=== PATIENT | female | born 1995 | race Caucasian/White ===

== ENCOUNTER 2019-11-12 05:53 | Day surgery (SDC) | payer OTHER, MEDICAID, SELFPAY ==
[2019-11-10 19:23] LABS: Probe Check PASS; Specimen Processing Control PASS
[2019-11-12 06:25] VITALS: BP 119/81; PULSE 69; RESP 16; TEMP 36.7; O2SAT 100; BMI 22.5
[2019-11-12] MEDS: Doxycycline 100 MG CAPSULE 200 MG PO (06:30)
[2019-11-12] MEDS: Lactated Ringers 1,000 ML 100 ML IV (06:31)
[2019-11-12 06:44] LABS: Hematocrit 35.6 % (37-47); Hemoglobin 11.5 g/dL (12.0-15.0); Mean Corp Hgb Conc 32.3 g/dL (32-36); Mean Corpuscular Hgb 30.3 pg (27.0-32.0); Mean Corpuscular Volume 93.7 fL (81-99); Mean Platelet Vol. 8.8 fl (6.2-12.0); Platelet Count 350 K/mm3 (150-450); RBC Distribution Width CV 13.3 % (11.6-14.6); RBC Distribution Width SD 45.5 fl (35.1-43.9); White Blood Count 5.4 K/mm3 (4.4-11.0)
--- NOTE | 2019-11-12 06:50 | HP.PCM_ITS ---
- Problem List (1) Missed Status: Acute History and Physical Date of Admission: 11/12/19 Leonid Velazquez is a 23 year old female who presents for problem visit?for follow up miscarriage and pre-op H&P.? ? HPI:?No fevers, chills, pain.?+Brown spotting.?S/p 2 doses of cytotec for MAB.? ? PAST MEDICAL HISTORY PAST MEDICAL HISTORY Diagnosis Date ? Abnormal Pap smear of cervix 2016 ? Dr Handy ? bleeding from breast ? ? Cystic fibrosis (HCC) ? ? Mental disorder ? PAST SURGICAL HISTORY PAST SURGICAL HISTORY Procedure Laterality Date ? EMBOLIZATION - TEST OCCLUSION ? ? ? x3 ? PAST SURGICAL HISTORY OF ? ? ? feeding tube when patient was a baby ? PAST SURGICAL HISTORY OF ? ? ? several sinus surgeries ? TOOTH EXTRACTION ? ? ? VAGINOSCOPY ? ? FAMILY HISTORY FAMILY HISTORY Problem Relation Age of Onset ? Psychiatry Mother ? ? Hypertension Mother ? ? No Known Problems Father ? ? No Known Problems Sister ? ? No Known Problems Brother ? ? Psychiatry Maternal Grandmother ? ? No Known Problems Paternal Grandmother ? ? No Known Problems Paternal Grandfather ? ? No Known Problems Brother ? ? No Known Problems Brother ? ? No Known Problems Brother ? ? other (CF 3rd cousinb) Paternal cousin ? SOCIAL HISTORY Social History ? Tobacco Use ? Smoking status: Never Smoker ? Smokeless tobacco: Never Used Substance Use Topics ? Alcohol use: Not Currently ? ? Comment: occasionally ? Drug use: No CURRENT MEDICATIONS Current Outpatient Medications Medication Sig ? sodium chloride (NEBUSAL) 3 % nebulizer solution Use 3 mL via nebulizer. ? Leffaigc-Kp-Cvu-Fe-FA ( VITAMIN) tab Take 1 tablet by mouth. ? iftlwvgvzpb-gbpcfptooj-ylxofmp (TRIKAFTA) 100-50-75 mg(d) /150 mg (n) TbSQ tabs Take 1 tablet by mouth. Take 2 combination tablets in the morning and take 1 Ivacaftor tablet in the evening. DO NOT crush, chew, or open. ? MULTI-VITAMIN ORAL Take by mouth. Vitamin A,B,D,E,K ? ? cholecalciferol, vitamin D3, (CHOLECALCIFEROL, VITD3,, BULK,) 100,000 unit/gram powd Take by mouth. ? ALBUTEROL INHALATION Inhale as instructed. ? omeprazole (PRILOSEC) 10 mg capsule Take 10 mg by mouth once daily. ? MEDICATION, NON-DATABASE Hypersol 3% saline ? tkdxkx-balasaua-vhlejjq (CREON) 24,000-76,000 -120,000 unit cpDR Take 3 capsules by mouth three times daily with meals. ? dornase myesha (PULMOZYME) 1 mg/mL nebulizer solution Inhale 2.5 mL as instructed twice daily. ? fluconazole (DIFLUCAN) 150 mg tablet Take 1 tablet by mouth one time only for 1 dose. ? No current facility-administered medications for this visit.? Allergies As of Date: 11/09/2019 Allergen ?Noted ?Reaction VANCOMYCIN ANALOGUES ?06/01/2013 ?Unknown, Itching, and Swelling ? Fully Assessed ?11/09/2019 ? REVIEW OF SYSTEMS Expanded ROS:?PAIN ASSESSMENT:?Negative for pain, history of chronic pain, or current treatment for a chronic pain condition. 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 EXAM:?BP 120/70 Wt 129 lb (58.5kg) LMP 08/01/2019? ? ? GENERAL:?pleasant,??female in no apparent distress HEENT:?Normocephalic, atraumatic, mucus membranes moist and no lesions NECK:?Supple, full range of motion, no adenopathy and thyroid normal DERMATOLOGY:?Normal, without lesions, non-icteric and non-hirsute CHEST:?Regular rate and rhythm ABDOMEN:?soft, non-tender and no masses NEURO:?exam grossly non-focal EXTREMITIES:?normal ? ASSESSMENT AND PLAN:?? Encounter Diagnosis ? ? ICD-10-CM ? 1. Pre-op exam Z01.818 ? 2. Missed O02.1 ? 3. Vaginal discharge N89.8 fluconazole (DIFLUCAN) 150 mg tablet TVUS showing endometrium that is complex appearing and measuring 2.6 cm with increased blood flow. Discussed retained POC's with patient. Counseling provided today and questions regarding miscarriage answered. Recommended IPAS procedure. Discussed r/b of IPAS and suction D&C. Pt desires to proceed with suction D&C. Reviewed risks including but not limited to bleeding, infection, uterine perforation, Asherman's with suction D&C. Patient desires to proceed with suction D&C and consent signed. Will schedule. ? Greta Hyde,?DO
--- NOTE | 2019-11-12 07:06 | PCM.DC.D&C ---
Discharge Diet: No Restrictions Discharge Activity: May Not Drive - For 24 hours after procedure, May Shower, May Take a Tub Bath - After 1 week or when your bleeding has stopped Return to work on:: 11/16/19 May resume sexual activity in: 1-2 weeks - Or once your bleeding stops Weight Bearing Status: Weight bearing as tolerated Lifting Restrictions: No restrictions Additional Activity Instructions:: No tampons, intercourse, hot tubs, pools or tub baths for 1 week or until your vaginal bleeding stops. Call your doctor if you observe: Fever of 101 or Higher, Inability to urinate, Inability to have a bowel movement, Using more than one pad per hour, Shortness of breath, Dizziness, Fainting spells, Chest pain, Increased palpitations (irregular heartbeat), Calf discomfort, Uncontrolled pain Allergies/Adverse Reactions: Allergies vancomycin Allergy (Verified 11/10/19 09:39) Itching Medications to take at Discharge Albuterol Inhaler [Ventolin Hfa (SP)] 1 puff INHALATION BID 07/31/16 Lipase/Protease/Amylase [Creon Dr 24,000 Units Capsule] 3 each PO TID 07/31/16 Sodium Chloride For Inhalation [Sodium Chloride] 1 dose INHALATION BID 07/31/16 Fluconazole [Diflucan] 600 mg PO DAILY 03/01/17 Omeprazole 20 mg PO QODAY 03/01/17 Elexacaftor/Tezacaftor/Ivacaft [Trikafta 100/50/75 mg-150 mg] 1 ea PO BID 11/10/19 Multivitamin with Minerals [Multiple Vitamin] 1 ea PO DAILY 11/10/19 Pnv No.95/Ferrous Fum/Folic AC [ Caplet] 1 ea PO DAILY 11/10/19 Orders to be completed after discharge: Type & Screen - PAT ONLY Time Frame: 11/12/19, Facility: [facility], Location: Laboratory Primary Care Physician: Care Physician,No Primary [Primary Care Provider] - Test Results: Test results from this visit will be discussed in further detail at your follow-up appointment, if applicable. Please Follow Up With: Greta Hyde DO When: 1 weeks - can be virtual if you are feeling well
--- NOTE | 2019-11-12 07:09 | PCM.OPRPT ---
Problem List (1) Missed Status: Acute Report of Operation Date of Procedure: 11/12/19 Pre-Operative Diagnosis: MAB at 8 weeks, s/p 2 doses of Cytotec with retained products of conception Post-Operative Diagnosis: As above Surgery/Procedure Performed:: Suction D&C Description of Surgical Findings:: Uterus enlarged and palpated to be an 8 week size uterus. Products of conception noted Type of Anesthesia:: MAC Special Medications: None Specimen's removed: Retained products of conception Drains: None Estimated Blood Loss (mL): 25 Fluids Replaced: 700 Description of Procedure: The patient was taken to the operating room where MAC anesthesia was found to be adequate. She was prepped and draped in dorsal lithotomy position in yellowfin stirrups. A weighted speculum was placed in the vagina to expose the cervix. The anterior lip of cervix was grasped with a single-tooth tenaculum. The cervix was serially dilated to accommodate a size 7 suction curettage cannula. A suction D&C was performed with retained products of conception noted. Several passes were made with the suction curettage, followed by a gentle sharp curettage for 4 passes. Several additional passes were made with the suction curettage until no further tissue was noted. All instruments were removed from the vagina. Bleeding was hemostatic. Sponge and instrument counts were correct. The patient was taken recovery in stable condition. Grafts/Implants Used: None - Complications None - Admit VTE Documentation VTE Present on Admission: No VTE Mechan Device Prophylaxis: SCD's
--- NOTE | 2019-11-12 07:30 | POC_PTH ---
PATIENT: AYDEE MARTINEZ LOC: [facility] [place] U#:[id number] AGE/SX: 23/F ROOM: RE11/12/[address]: Dr. Greta Hyde DO : 1995 BED: DIS: 11/12/2019 SPEC #: [id number] RECD: 11/12/19 08:24 STATUS: KIRA RANDAL #: [id number] TORSTEN: 11/12/19 07:[address]: Greta Hyde DEPT: SURGICAL PATHOLOGY RECD BY: Boni Murphy ENTERED: 11/12/19 09:20 SP TYPE: PROD CONC OTHR DR: No Primary Care Phys Tissues: Product of conception, NOS Procedures: Surgery Specimen Level IV HEADER OPERATION: Suction D & C PRE-OP DIAGNOSIS: Missed TISSUE SUBMITTED: Products of conception MICROSCOPIC DIAGNOSIS Endometrium, curettage: Chorionic villi, decidualized stroma and trophoblastic cells consistent with products of conception. AM:kurt 7/6/20 MICROSCOPIC DESCRIPTION Slides are reviewed. GROSS DESCRIPTION Received in fixative is one container labeled with the patient's name and designated products of conception. The specimen consists of multiple fragments of pink hemorrhagic soft tissue that in aggregate measure 6 x 5 x 1 cm. No tissue is identified. Pewter Fabricator tissue is submitted in two cassettes. / SJ:kurt 11/12/19 TC:5 CPT: 26019
[2019-11-12 08:01] VITALS: BP 113/75; BP 119/81; PULSE 111; RESP 16; TEMP 37.2; O2SAT 100
[2019-11-12 08:05] VITALS: BP 119/81; BP 121/80; PULSE 115; RESP 18; O2SAT 100
[2019-11-12 08:10] VITALS: BP 119/81; BP 125/83; PULSE 94; RESP 16; O2SAT 100
[2019-11-12 08:18] VITALS: BP 119/81; BP 126/82; PULSE 82; RESP 18; TEMP 37.1; O2SAT 99
[2019-11-12 08:57] VITALS: BP 119/81
== END 2019-11-12 08:58 | disposition home or self-care (01) ==
LOC: SDC 05:58 → AC 06:00
PROVIDERS: Anesthesiology; Referring Provider Obstetrics & Gynecology; Visit Provider Obstetrics & Gynecology
PROC: (CPT 59820; principal; 2019-11-12 07:15)
DX: O02.1 Missed abortion (principal); Z11.59 Encounter for screening for other viral diseases; E84.9 Cystic fibrosis, unspecified; N89.8 Other specified noninflammatory disorders of vagina; K21.9 Gastro-esophageal reflux disease without esophagitis; Z79.899 Other long term (current) drug therapy
CPT/HCPCS: 01965; 59820; 85027; 86850; 86900; 86901; 87635; 88305; G2023; J7050; J7120; J2405; U0003

== ENCOUNTER → 2020-01-20 12:22 | Outpatient (CLI) | payer OTHER, MEDICAID, SELFPAY ==
[2020-01-20 13:46] LABS: hCG Titer Quant., Serum 15742 mIU/mL (1-3)
== END ==
PROVIDERS: Referring Provider Obstetrics & Gynecology; Visit Provider Obstetrics & Gynecology
DX: O09.291 Supervision of pregnancy with other poor reproductive or obstetric history, first trimester (principal); Z3A.00 Weeks of gestation of pregnancy not specified
CPT/HCPCS: 36415; 84702

== ENCOUNTER 2020-02-19 18:13 | Emergency (ER) | payer OTHER, MEDICAID, SELFPAY ==
[2020-02-19 18:13] VITALS: BP 143/89; PULSE 92; RESP 16; TEMP 37.2; O2SAT 100; BMI 23.0
--- NOTE | 2020-02-19 18:54 | US_ITS ---
STUDY: FIRST TRIMESTER OBSTETRICAL ULTRASOUND REASON FOR EXAM: Female, 24 years old BLEEDING WITH CRAMPS LMP: 12/07/2019 TECHNIQUE: Transvaginal TECHNICAL QUALITY: Adequate. PRIOR ULTRASOUND: None. FINDINGS: There is visualization of a single gestational sac in a normal intrauterine position. The mean sac diameter (MSD) measures 4.2 cm, indicating an estimated gestational age (EGA) of 9 weeks, 4 days. The gestational sac shape is within normal limits. There is a visualized yolk sac. The yolk sac measures 6.3 mm. The placenta is non-visualized. There is visualization of a live embryo. The crown-rump length (CRL) measures 3.7 cm, indicating an estimated gestational age (EGA) of 10 weeks, 2 days. There is demonstrated cardiac activity with a heart rate of 183 bpm. There is a moderate to large subchorionic hemorrhage. The estimated gestation age (EGA) by LMP is 10 weeks, 4 days. The estimated date of delivery (OFELIA) by LMP is 09/12/2020. The estimated gestation age (EGA) by US is 9 weeks, 6 days. The estimated date of delivery (OFELIA) by US is 09/17/2020. The uterus measures 10.6 x 9.3 x 7.0 cm. There is no demonstrated uterine fibroid. The cervix is closed. The right ovary measures 4.0 x 2.8 x 1.8 cm. There is no right ovarian cyst. There is no visualized right adnexal mass or complex lesion. The left ovary measures 3.0 x 1.8 x 2.2 cm. There is no left ovarian cyst. There is no visualized left adnexal mass or complex lesion. There is minimal fluid in the cul de sac. US/Transvaginal w/Preg US IMPRESSION: Single live intrauterine gestation with ultrasound EGA of approximately 10 weeks 2 days. Moderate to large subchorionic hemorrhage, short interval follow-up recommended Electronically Signed: Fitz Lopez MD at 20:48 EDT , Service support ,
[2020-02-19 19:04] LABS: Bacteria 0 SEEN /hpf (None Seen); Mucous, Urine 0 SEEN /hpf (<or=2+); Red Blood Cells-Urine 0 SEEN /hpf (0-5)
[2020-02-19 19:08] LABS: Color, Urine Yellow (Yellow); Glucose, Dipstick Normal (Normal); Ketone-Dipstick Negative (Negative); Leukocyte Esterase-Dipstick Negative /ul (Negative); Nitrite-Dipstick Negative (Negative); Occult Blood-Urine 25 /ul (Negative); Protein-Dipstick Negative (Negative); Specific Gravity, Urine 1.015 (1.002-1.030); Urine Bilirubin Dipstick Negative (Negative); Urine Clarity Clear (Clear); Urine Urobilinogen Normal (Normal)
[2020-02-19 19:12] LABS: Squamous Epithelial Cells - UA 0-5 SEEN /hpf (5-10); White Blood Cells 0-5 SEEN /hpf (0-5)
--- NOTE | 2020-02-19 19:19 | ED.DCSUM_ITS ---
- ER Visit Summary Date of Service: 02/19/20 Chief Complaint: Vaginal bleeding History of Present Illness: The patient is a 24 F who presents with vaginal bleeding that has been intermittent over the last couple weeks. Patient states that she has been having some brown vaginal bleeding. Patient denies passing any tissue or clots. Patient is approximately 10 weeks 4 days . Patient is 2 para 0 with 1 miscarriage. Patient is concerned over possible miscarriage again. Patient denies any vaginal discharge. Patient admits to some abdominal cramping. Patient denies any fevers or chills. Patient admits to nausea but denies any vomiting. Physical Examination: Vital signs are stable. Patient is afebrile. Patient is in no acute distress. Oral mucosa is pink and moist. Neck is supple. Trachea is midline. There is no JVD noted. Heart was regular rate and rhythm. Lungs are clear and equal bilaterally. Abdomen is soft. Bowel sounds are normal. There is no tenderness. There is no rebound or guarding noted. Skin is warm dry. Cranial nerves II through XII are intact. There are no focal motor or sensory deficits noted. Extremities are intact. There is no calf tenderness or edema. Test Results: CBC and urinalysis were obtained and were within normal limits. Quantitative hCG was 7[address]70. Pelvic ultrasound was obtained. There is a single live intrauterine gestation measuring approximately 10 weeks 2 days. There is a moderate to large subchorionic hemorrhage. This was interpreted by the radiologist and reviewed by myself. Emergency Department Course and Treatment: Camet-tm-lnrg ultrasound was obtained and showed movement. I was unable to calculate the heart rate. Patient was feeling better on reevaluation. Patient was instructed to have complete vaginal rest. 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 Patient understood and was agreeable with the plan. All questions were answered. Disposition: Discharge home Impression: Threatened miscarriage This note was generated with [employer]AT[employer]COMation software. It may contain incorrect words, spelling, and punctuation that were not noted in review of the chart prior to signing ED Disposition - Plan for ED Patient: Disposition: Home or Assisted Living Diagnosis: Threatened miscarriage Instructions: ED Possible Miscarriage Threatened Referrals: Greta Hyde DO [STAFF PHYSICIAN] - 2 Days
[2020-02-19 19:39] LABS: Absolute Lymphocyte Count 2.06 X10^3/uL (0.83-4.51); Absolute Neutrophil Count 4.2 X10^3/uL (2.0-7.7); Basophil# 0.03 X10^3/uL; Basophil% 0.4 % (0-1); Eosinophil# 0.12 X10^3/uL; Eosinophils% 1.7 % (0-5); Hemoglobin 12.8 g/dL (12.0-15.0); Lymphocyte # 2.06 X10^3/ul (4.0); Mean Corp Hgb Conc 32.8 g/dL (32-36); Mean Corpuscular Hgb 30.2 pg (27.0-32.0); Monocyte# 0.42 X10^3/uL; Monocyte% 6.1 % (0-10); NRBC Flagged by Analyzer 0 % (0-5); Neutrophil # 4.21 X10^3/uL (2.7-7.7); Neutrophil % 61.5 % (47-70); Platelet Count 336 K/mm3 (150-450); RBC Distribution Width CV 11.8 % (11.6-14.6); RBC Distribution Width SD 39.1 fl (35.1-43.9); Red Blood Count 4.24 M/mm3 (4.2-5.4); White Blood Count 6.9 K/mm3 (4.4-11.0)
--- NOTE | 2020-02-19 19:50 | ED.RN ---
MULTIPLE ATTEMPTS TO GET IV ACCESS AD ALSO BLOOD DRAWS HAVE OCCURRED. PT IS CURRENTLY REFUSING ANY FURTHER ATTEMPTS. PHYSICIAN IS AWARE.
[2020-02-19 21:08] VITALS: BP 137/62; PULSE 59; RESP 16; O2SAT 98
[2020-02-19 21:53] VITALS: BP 111/71; PULSE 75; RESP 18; O2SAT 100
== END 2020-02-19 21:53 | disposition home or self-care (01) ==
PROVIDERS: Emergency Provider Emergency Medicine
DX: O20.0 Threatened abortion (principal); E84.9 Cystic fibrosis, unspecified; Z3A.10 10 weeks gestation of pregnancy
CPT/HCPCS: 76817; 81001; 84702; 85025; 99282; J7030; A4216

== ENCOUNTER 2020-05-01 16:34 | Emergency (ER) | payer OTHER, MEDICAID, SELFPAY ==
[2020-05-01 16:35] VITALS: BP 124/65; PULSE 83; RESP 16; TEMP 36.2; O2SAT 100; BMI 24.6
--- NOTE | 2020-05-01 16:51 | EKG12_ITS ---
Test Reason : SYNCOPE Blood Pressure : / mmHG Vent. Rate : 067 BPM Atrial Rate : 067 BPM P-R Int : 150 ms QRS Dur : 078 ms QT Int : 366 ms P-R-T Axes : 064 041 034 degrees QTc Int : 386 ms Normal sinus rhythm Normal ECG Confirmed by JAMA WALLACE, MONIQUE ([id number]), movie editor LISA FERRO ([id number]) on 05/04/2020 11:08:22 AM Referred By: ROLAND Confirmed By:MONIQUE YUN MD
--- NOTE | 2020-05-01 16:51 | ED.VIS.GEN ---
History of Present Illness Chief Complaint: Syncope Narrative: This patient is a 24-year-old female who presents after syncopal episode. She was shopping. She became nauseated and felt lightheaded. She sat down on the floor and then lost consciousness. It is estimated that she was unresponsive for 1 minute. She denies any chest pain or difficulty breathing. No abdominal pain pelvic pain vaginal bleeding or loss of fluids. She does not believe she suffered any injuries with her syncopal episode. She does note that she has had prior syncopal episodes and has had dizziness with previous pregnancies. Past Medical History - Allergies and Home Meds Allergies/Adverse Reactions: Allergies vancomycin Allergy (Verified 05/01/20 16:37) Itching Primary Care Physician: Care Physician,No Primary [Primary Care Provider] - Past Medical History: - - Cystic fibrosis Smoking Status: Never smoker Review of Systems All systems negative except as indicated General: Denies: Fever Eyes: Denies: Visual changes - bilaterally ENT: Denies: Bilateral ear pain Cardiovascular: Reports: - - Syncope. Denies: Chest pain Respiratory: Denies: Dyspnea Gastrointestinal: Reports: Nausea. Denies: Abdominal pain, Vomiting, Diarrhea Genitourinary: Reports: - - No vaginal bleeding no pelvic pain Skin: Denies: Rash Neurological: Denies: Headache Physical Exam Vital Signs/Narrative: Vital Signs Temp Pulse Resp BP Pulse Ox 05/01/20 16:35 97.2 F L 83 16 124/65 H 100 Inital Vital Signs reviewed: Yes General: Well nourished, Well developed Head: Normocephalic Eyes: EOMI ENT: Moist mucous membranes Neck: Supple Cardiovascular: Regular rate, Regular rhythm Respiratory: No distress, CTA bilaterally Abdomen: Soft, Nontender, Nondistended Skin: Normal color Neurological: Alert Psychological: Normal affect Diagnostic/Tx/Re-eval Laboratory Results 05/01/20 05/01/20 17:20 17:20 WBC 7.9 RBC 3.77 L Hgb 11.9 L Hct 35.4 L MCV 93.9 MCH 31.6 MCHC 33.6 RDW Std Deviation 43.1 RDW Coeff of Shai 12.6 Plt Count 261 MPV 9.1 Immature Gran % (Auto) 0.400 Neut % (Auto) 79.4 H Lymph % (Auto) 14.0 L Berks % (Auto) 4.8 Eos % (Auto) 1.1 Baso % (Auto) 0.3 Absolute Neuts (auto) 6.3 Absolute Lymphs (auto) 1.11 Nucleated RBC % 0 Sodium 139 Potassium 3.4 L Chloride 106 Carbon Dioxide 26.0 Anion Gap 7 BUN 12 Creatinine 0.50 L Estim Creat Clear Calc 141.04 Est GFR (MDRD) Af Amer 193 Est GFR (MDRD) Non-Af 159 BUN/Creatinine Ratio 24.2 H Glucose 86 Calcium 9.0 - Medical Decision Making EKG shows normal sinus rhythm at a rate of 67 with no acute ischemic changes. Serum laboratory studies are unremarkable. Orthostatic vital signs are negative. I did perform kmail-hw-nlvm transabdominal pelvic ultrasound which shows a live IUP with heart rate of 150. There is good movement. I also spoke to Dr. Hyde, patient's underwriting technician. She agrees that without any abdominal pain or vaginal bleeding there is not an indication for an emergent formal ultrasound at this time or any further monitoring. Patient was advised that dizziness like this can occur this time of and to make sure she is drinking plenty of fluids and taking her time when shifting position and avoiding prolonged standing if possible. She was advised to follow-up as an outpatient. He does understand return for new or worsening symptoms she was advised on signs and symptoms to monitor for, patient was discharged. ED Disposition - Plan for ED Patient: Disposition: Home or Assisted Living Diagnosis: Syncope Instructions: ED Fainting, Uncertain Cause Referrals: Care Physician,No Primary [Primary Care Provider] - Greta Hyde DO [STAFF PHYSICIAN] -
[2020-05-01 17:26] VITALS: BP 128/70; PULSE 73; RESP 16; O2SAT 97
[2020-05-01 17:27] LABS: Absolute Lymphocyte Count 1.11 X10^3/uL (0.83-4.51); Absolute Neutrophil Count 6.3 X10^3/uL (2.0-7.7); Basophil# 0.02 X10^3/uL; Basophil% 0.3 % (0-1); Eosinophil# 0.09 X10^3/uL; Eosinophils% 1.1 % (0-5); Hematocrit 35.4 % (37-47); Hemoglobin 11.9 g/dL (12.0-15.0); Lymphocyte # 1.11 X10^3/ul (4.0); Mean Corp Hgb Conc 33.6 g/dL (32-36); Mean Corpuscular Hgb 31.6 pg (27.0-32.0); Mean Corpuscular Volume 93.9 fL (81-99); Mean Platelet Vol. 9.1 fl (6.2-12.0); Monocyte# 0.38 X10^3/uL; Monocyte% 4.8 % (0-10); NRBC Flagged by Analyzer 0 % (0-5); Neutrophil # 6.28 X10^3/uL (2.7-7.7); Neutrophil % 79.4 % (47-70); Platelet Count 261 K/mm3 (150-450); RBC Distribution Width CV 12.6 % (11.6-14.6); RBC Distribution Width SD 43.1 fl (35.1-43.9); Red Blood Count 3.77 M/mm3 (4.2-5.4); White Blood Count 7.9 K/mm3 (4.4-11.0)
[2020-05-01 17:40] LABS: Anion Gap 7 (5-15); BUN 12 mg/dL (7-18); BUN/Creat Ratio 24.2 RATIO (10-20); Chloride 106 mmol/L (98-107); EST Glomerular Filtration Rate 159 mL/min (>60); Est Glom Filt Rate - Afr Amer 193 mL/min (>60); Estimated Creatinine Clearance 141.04 ml/min; Glucose 86 mg/dL (74-106); Potassium 3.4 mmol/L (3.5-5.1); Sodium Level 139 mmol/L (136-145)
[2020-05-01 17:42] VITALS: BP 117/68; BP 120/72; BP 120/73; PULSE 73; PULSE 77
== END 2020-05-01 18:05 | disposition home or self-care (01) ==
PROVIDERS: Emergency Provider Emergency Medicine
DX: R55 Syncope and collapse (principal); E84.9 Cystic fibrosis, unspecified
CPT/HCPCS: 80048; 85025; 93005; 99284; J7030; A4216

== ENCOUNTER → 2020-08-16 13:52 | Outpatient (CLI) | payer OTHER, MEDICAID, SELFPAY ==
[2020-08-16 13:02] VITALS: BMI 28.0
[2020-08-16 16:04] LABS: Absolute Lymphocyte Count 1.61 X10^3/uL (0.83-4.51); Absolute Neutrophil Count 7.7 X10^3/uL (2.0-7.7); Basophil# 0.05 X10^3/uL; Basophil% 0.5 % (0-1); Eosinophils% 0.9 % (0-5); Hematocrit 36.7 % (37-47); Hemoglobin 11.9 g/dL (12.0-15.0); Lymphocyte # 1.61 X10^3/ul (4.0); Lymphocyte % 15.1 % (19-41); Mean Corp Hgb Conc 32.4 g/dL (32-36); Mean Corpuscular Hgb 31.9 pg (27.0-32.0); Mean Corpuscular Volume 98.4 fL (81-99); Mean Platelet Vol. 9.1 fl (6.2-12.0); Monocyte# 0.73 X10^3/uL; Monocyte% 6.9 % (0-10); NRBC Flagged by Analyzer 0 % (0-5); Neutrophil % 72.4 % (47-70); Platelet Count 256 K/mm3 (150-450); RBC Distribution Width CV 12.8 % (11.6-14.6); Red Blood Count 3.73 M/mm3 (4.2-5.4); White Blood Count 10.6 K/mm3 (4.4-11.0)
[2020-08-16 16:27] LABS: Anion Gap 6 (5-15); BUN 8 mg/dL (7-18); BUN/Creat Ratio 15.2 RATIO (10-20); Calcium,Total 9.2 mg/dL (8.5-10.1); Chloride 105 mmol/L (98-107); Creatinine, Serum 0.53 mg/dL (0.55-1.02); EST Glomerular Filtration Rate 149 mL/min (>60); Est Glom Filt Rate - Afr Amer 180 mL/min (>60); Glucose 57 mg/dL (74-106); Potassium 3.6 mmol/L (3.5-5.1); Sodium Level 137 mmol/L (136-145)
== END ==
PROVIDERS: Visit Provider Physician Assistant Medical
DX: R00.0 Tachycardia, unspecified (principal)
CPT/HCPCS: 36415; 80048; 85025

== ENCOUNTER → 2020-08-19 13:52 | Outpatient (CLI) | payer OTHER, MEDICAID, SELFPAY ==
[2020-08-16 13:02] VITALS: BMI 28.0
--- NOTE | 2020-08-19 13:53 | ECHOD_ITS ---
Reason For Study: Tachycardia Procedure This was a 2D Doppler, Color Flow transthoracic echocardiogram. Patient is 36 weeks . Exam performed in department. Left Ventricle Normal LV size. Left ventricular systolic function is normal. The estimated ejection fraction is 65 %. Normal diastology for age. No regional wall motion abnormalities noted. Right Ventricle Normal RV size. Normal systolic function. Atria Normal left atrium. Normal right atrium. Mitral Valve Normal mitral valve. Tricuspid Valve Normal tricuspid valve. Aortic Valve Normal aortic valve. Trisinus/trileaflet aortic valve. Pulmonic Valve Normal pulmonic valve. Great Vessels Normal aortic root. The pulmonary artery is normal size. Normal inferior vena cava. Pericardium/Pleural No pericardial effusion. MMode/2D Measurements & Calculations LVIDd: 4.4 cm IVSd: 0.81 cm LA dimension: 3.4 cm LVIDs: 3.0 cm LVPWd: 1.0 cm FS: 32.0 % LAV(MOD-sp4): 24.1 ml LA A4 area: 10.9 cm2 RA A4 area: 9.1 cm2 Time Measurements MV dec time: 0.23 sec Doppler Measurements & Calculations MV E max chava: 81.7 cm/sec Lat Peak E' Chava: 16.2 cm/sec Med Peak E' Chava: 13.7 cm/sec MV A max chava: 53.6 cm/sec E/E' lat: 5.0 E/E' med: 6.0 MV E/A: 1.5 MV V2 max: 78.2 cm/sec MV P1/2t max chava: 78.2 cm/sec Ao V2 max: 129.0 cm/sec MV max P.4 mmHg MV P1/2t: 108.0 msec Ao max P.7 mmHg MV V2 mean: 51.3 cm/sec MV dec slope: 212.0 cm/sec2 MV mean P.2 mmHg MVA(P1/2t): 2.0 cm2 MV V2 VTI: 16.3 cm LV V1 max: 112.9 cm/sec PA V2 max: 113.6 cm/sec LV V1 max P.1 mmHg ECHO/Echo Complete Interpretation Summary Normal LV size. Left ventricular systolic function is normal. The estimated ejection fraction is 65 %. Normal diastology for age. Structurally normal valves. Ordering Physician: Deepali Guallpa Referring Physician: Elena Orellana Performed By: Chito Skaggs RCS
== END ==
PROVIDERS: PCP Obstetrics & Gynecology; Referring Provider Physician Assistant Medical; Visit Provider Physician Assistant Medical
DX: R00.0 Tachycardia, unspecified (principal)
CPT/HCPCS: 93306

== ENCOUNTER → 2020-08-31 15:37 | Outpatient (CLI) | payer OTHER, MEDICAID, SELFPAY ==
[2020-08-16 13:02] VITALS: BMI 28.0
== END ==
PROVIDERS: PCP Obstetrics & Gynecology; Visit Provider Obstetrics & Gynecology
DX: Z03.818 Encounter for observation for suspected exposure to other biological agents ruled out (principal)
CPT/HCPCS: 87635; C9803; U0002

== ENCOUNTER 2020-09-04 18:40 | Inpatient (IN) | payer OTHER, MEDICAID, SELFPAY ==
[2020-08-16 13:02] VITALS: BMI 28.0
[2020-09-04 19:08] VITALS: BMI 28.5
[2020-09-04] MEDS: Lactated Ringers 1,000 ML 50 ML IV (19:35)
[2020-09-04 19:41] LABS: Bedside Glucose 92 mg/dL (70-110)
[2020-09-04 19:50] VITALS: TEMP 36.8
[2020-09-04 19:51] VITALS: BP 125/72; PULSE 100; PULSE 92; TEMP 36.8; O2SAT 96
[2020-09-04 20:04] LABS: Absolute Lymphocyte Count 1.73 X10^3/uL (0.83-4.51); Absolute Neutrophil Count 7.4 X10^3/uL (2.0-7.7); Basophil# 0.02 X10^3/uL; Basophil% 0.2 % (0-1); Eosinophil# 0.11 X10^3/uL; Eosinophils% 1.1 % (0-5); Hematocrit 35.8 % (37-47); Hemoglobin 11.8 g/dL (12.0-15.0); Lymphocyte # 1.73 X10^3/ul (0.83-4.51); Lymphocyte % 17.2 % (19-41); Mean Corpuscular Hgb 30.9 pg (27.0-32.0); Mean Corpuscular Volume 93.7 fL (81-99); Mean Platelet Vol. 8.9 fl (6.2-12.0); Monocyte# 0.62 X10^3/uL; Monocyte% 6.2 % (0-10); NRBC Flagged by Analyzer 0 % (0-5); Neutrophil # 7.37 X10^3/uL (2.7-7.7); Neutrophil % 73.3 % (47-70); Platelet Count 243 K/mm3 (150-450); RBC Distribution Width CV 12.2 % (11.6-14.6); Red Blood Count 3.82 M/mm3 (4.2-5.4); White Blood Count 10.1 K/mm3 (4.4-11.0)
[2020-09-04] MEDS: miSOPROStol 25 MCG TABLET VAGINAL (20:23)
[2020-09-04 20:34] VITALS: BP 119/78; PULSE 83
[2020-09-04 20:35] VITALS: TEMP 36.9
[2020-09-05] VITALS (60 sets, daily range): BP systolic 103–150; BP diastolic 53–87; PULSE 69–137; TEMP 36.4–39.4; O2SAT 90–100
[2020-09-05 00:20] LABS: Bedside Glucose 77 mg/dL (70-110)
[2020-09-05] MEDS: Lactated Ringers 500 ML 999 ML IV ×3 (00:38→20:51)
[2020-09-05] MEDS: Acetaminophen 500 MG Tablet PO ×3 (00:58→18:13)
[2020-09-05 03:31] LABS: Bedside Glucose 69 mg/dL (70-110)
[2020-09-05] MEDS: Oxytocin 30 units/NS 500 ml 30 UNITS/500 ML IV.SOLN IV (03:51)
[2020-09-05 05:46] LABS: Bedside Glucose 102 mg/dL (70-110)
[2020-09-05 08:01] LABS: Bedside Glucose 77 mg/dL (70-110)
[2020-09-05] MEDS: 0.9% Normal Saline Single 100 ML IV.SOLN. INTRA-UTER (08:18)
--- NOTE | 2020-09-05 08:24 | PCM.HP.OB ---
- Problem List (1) 39 weeks gestation of Status: Acute (2) Gestational diabetes Status: Acute (3) LGA (large for gestational age) fetus Status: Acute (4) Cystic fibrosis Status: Chronic History Date of Admission: 09/04/20 Final OFELIA: 09/12/20 Gestational age: 39 Weeks and 0 Days History of this : This is a 24 year-old, G [2], P [0], at 39.0 weeks gestational age for induction of labor for CF, GDM, and LGA. 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 Depression F32.9 Duodenal ulcer K26.9 GDM (gestational diabetes mellitus) O24.419 Sinusitis J32.9 Missed O02.1 Subchorionic hemorrhage in first trimester O41.8X10, O46.8X1 Surgical History: Surgical History (Last Reviewed 08/16/20 @ 13:15 by Deepali Guallpa PA, PA) History of dilatation and curettage Onset Date: 11/2019 Z98.890 History of sinus surgery Z98.890 embolization Allergies vancomycin Allergy (Mild, Verified 09/04/20 19:58) Itching Home Medications: Home Medications Albuterol Inhaler [Ventolin Hfa (SP)] 1 puff INHALATION BID 07/31/16 Sodium Chloride For Inhalation [Sodium Chloride] 1 dose INHALATION BID 07/31/16 Pnv No.95/Ferrous Fum/Folic AC [ Caplet] 1 ea PO DAILY 11/10/19 elexacaftor 100 mg-tezacaf 50mg-ivacaf 75mg(d)/ivacaf 150mg(n) tablets 1 ea PO BID 05/20/20 multivitamin 1 tablet PO DAILY 08/16/20 Ferrous Sulfate [Iron] 325 mg PO DAILY 09/04/20 lipase/protease/amylase [Creon DR 24,000 Unit Capsule] 3 - 4 capsule PO 09/04/20 Smoking Status: Never smoker Number of Fetus(es): 1 History Past Pregnancies: Past Pregnancies Delivery Date Name GA/ Weeks Outcome Route Wt Sex Labor Length Anesthesia Delivery Location Provider FOB Labs: O+ Rubella - immune HB- neg HC- neg RPR- NR HIV- NR GBS- neg COVID- 19- negative Review of Systems Constitutional: Denies: Chills, Fever, Weight Change HEENT: Denies: Head Aches, Sinus Congestion, Sinus Drainage Cardiovascular: Denies: Chest Pain, Palpitations Respiratory: Denies: Cough, Shortness of breath at rest, Sputum production Gastrointestinal: Denies: Abdominal Pain, Nausea, Vomiting Genitourinary: Denies: Dysuria Musculoskeletal: Denies: Joint Pain, Joint Tenderness Skin: Denies: Rash, Wounds Neurological: Denies: Numbness, Tingling, Focal weakness Physical Exam Vitals: Vital Signs Temp Pulse BP Pulse Ox 98.2 F 81 128/74 H 98 09/05/20 07:28 09/05/20 07:36 09/05/20 07:28 09/05/20 07:36 General: Alert, Oriented x3 HEENT: Atraumatic Cardiovascular: Regular rate Lungs: Normal air movement Abdomen: Soft, Non Tender, Gravid Neurological: Cranial nerves II-XII grossly intact Estimated gestational size: Large for gestational age Presentation: Cephalic Cervix Dilation (cm): 1.5 Station: -3 Effacement (%): 70 Assessment/Plan All Active Problems (Last Reviewed 08/16/20 @ 13:15 by Deepali Guallpa PA, PA) 39 weeks gestation of (Acute) Gestational diabetes (Acute) LGA (large for gestational age) fetus (Acute) Rapid palpitations (Acute) Syncope (Acute 05/01/20) This is a 24 year-old, G [2], P [0], at 39.1 weeks gestational age for induction of labor for Cystic Fibrosis, GDM, and LGA. Admit to labor and delivery Routine labs IV fluids per policy Cytotec 25 mcg PO every 4 hours x 6 doses Juan bulb placed without difficulty Start Pitocin IV and titrate per policy- once juan bulb placed GBS negative Epidural when indicated Anticipate Dr. Dixon at bedside
[2020-09-05 09:15] LABS: Bedside Glucose 68 mg/dL (70-110)
[2020-09-05] MEDS: Lactated Ringers 1,000 ML 50 ML IV ×2 (09:26→18:31)
[2020-09-05] MEDS: fentaNYL-bupivacaine (epidural) 100 ML BAG EPIDURAL ×3 (10:27→20:01)
[2020-09-05 10:46] LABS: Bedside Glucose 102 mg/dL (70-110)
[2020-09-05 10:46] LABS: Bedside Glucose 135 mg/dL (70-110)
[2020-09-05 13:20] LABS: Bedside Glucose 60 mg/dL (70-110)
[2020-09-05 13:20] LABS: Bedside Glucose 123 mg/dL (70-110)
[2020-09-05 14:26] LABS: Bedside Glucose 77 mg/dL (70-110)
[2020-09-05 15:46] LABS: Bedside Glucose 81 mg/dL (70-110)
[2020-09-05 19:55] LABS: Bedside Glucose 83 mg/dL (70-110)
--- NOTE | 2020-09-05 20:07 | NURSING ---
Placed by Paco Williamson
[2020-09-05 22:25] LABS: Bedside Glucose 58 mg/dL (70-110)
[2020-09-05 22:35] LABS: Bedside Glucose 99 mg/dL (70-110)
[2020-09-05 23:36] LABS: Bedside Glucose 95 mg/dL (70-110)
[2020-09-06] VITALS (22 sets, daily range): BP systolic 99–131; BP diastolic 53–81; PULSE 81–151; RESP 16–18; TEMP 35.9–38.2; O2SAT 97–100
[2020-09-06] MEDS: Acetaminophen 500 MG Tablet PO (00:19)
[2020-09-06 00:51] LABS: Bedside Glucose 91 mg/dL (70-110)
[2020-09-06 00:51] LABS: Bedside Glucose 65 mg/dL (70-110)
[2020-09-06 00:51] LABS: Bedside Glucose 67 mg/dL (70-110)
[2020-09-06] MEDS: fentaNYL-bupivacaine (epidural) 100 ML BAG EPIDURAL (01:05)
[2020-09-06 05:37] LABS: Bedside Glucose 92 mg/dL (70-110)
[2020-09-06 05:37] LABS: Bedside Glucose 99 mg/dL (70-110)
--- NOTE | 2020-09-06 10:13 | NURSING ---
Delivery record completed by Heather Bowers after delivery at 09/06/20 [id number]. Delivery record entered manually by A Stevens
[2020-09-06] MEDS: Ibuprofen 600 MG Tablet PO ×2 (10:45→17:09)
[2020-09-06] MEDS: Creon 24,000 unit DR Capsule 3 CAP PO ×2 (13:25→18:17)
[2020-09-06] MEDS: Acetaminophen 500 MG Tablet 1000 MG PO (16:21)
[2020-09-06] MEDS: ELEXACAFTOR/TEZACAFTOR/IVACAFT 1 EACH TABLET.SEQ PO (18:20)
[2020-09-07 04:00] VITALS: BP 116/52; PULSE 89; RESP 16; TEMP 36.1; O2SAT 97
--- NOTE | 2020-09-07 08:15 | PCM.OPRPT ---
Report of Operation Date of Procedure: 09/06/20 Pre-Operative Diagnosis: 39 week , labor Post-Operative Diagnosis: same Surgery/Procedure Performed:: Vaginal delivery Description of Surgical Findings:: Normal perineum and vagina clinical staff educator: None Type of Anesthesia: Epidural Special Medications: none Specimen's removed: placenta Drains: juan Estimated Blood Loss (mL): 400 Fluids Replaced: n/a Description of Procedure: of vigorous male infant over 2nd degree perineal laceration. Remainder of infant delivered in < 15 seconds with gentle traction and maternal pushing efforts only. Spontaneous delivery of placenta intact with 3 vessel cord. Cervix and vagina intact. 2nd degree perineal laceration repaired with 3-0 vicryl rapide suture. Vaginal sweep completed by me. Delivery time 303 am. No nuchal cord. Apgars 8,9. Grafts/Implants Used: none
[2020-09-07 08:20] VITALS: BP 126/88; PULSE 97; RESP 16; TEMP 36.6; O2SAT 98
[2020-09-07] MEDS: Acetaminophen 500 MG Tablet 1000 MG PO (08:25)
[2020-09-07] MEDS: Creon 24,000 unit DR Capsule 3 CAP PO ×2 (08:25→12:33)
[2020-09-07] MEDS: ELEXACAFTOR/TEZACAFTOR/IVACAFT 1 EACH TABLET.SEQ 2 EACH PO (08:28)
[2020-09-07] MEDS: Ibuprofen 600 MG Tablet PO (12:32)
--- NOTE | 2020-09-07 13:08 | PCM.PN.OB ---
Subjective Subjective: Doing well per patient and nursing staff. Ambulating and passing flatus. Taking PO without difficulty. Denies headache, visual changes, chest pain, SOB, leg pain, or increased vaginal bleeding. Planning D/C home today. Bottlefeeding. Objective Data Objective Data Vital Signs: Vital Signs Temp Pulse Resp BP Pulse Ox 97.9 F 97 16 126/88 H 98 09/07/20 08:20 09/07/20 08:20 09/07/20 08:20 09/07/20 08:20 09/07/20 08:20 Oxygen Delivery Method Room Air Weight: 161 lb 3.2 oz Body Mass Index (BMI) 28.5 Intake & Output: Intake and Output for Last 24 Hours 09/05/20 09/06/20 09/07/20 23:59 23:59 23:59 Intake Total 4891.06 / 4891.06 796.5 / 796.5 Output Total 2900 / 2900 700 / 700 Balance 1990. / 1990. 96.5 / 96.5 Lab / Micro Data Result Diagrams: 09/04/20 19:35 Physical Exam Const alert and oriented x3 General Appearance: cooperative and comfortable HEENT normocephalic Head and Scalp: normal to inspection Resp normal respiratory effort and clear to auscultation bilaterally Auscultation: clear to auscultation bilaterally Cardio regular rate and regular rhythm Assessment & Plan Assessment/Plan (1) (normal spontaneous vaginal delivery): Status: Acute Code(s): O80 - Encounter for full-term uncomplicated delivery Plan: 1) Routine PP care 2) D/C home 3) Ibuprofen for pain 4) Follow up in 2 weeks and 6 weeks
--- NOTE | 2020-09-07 13:13 | PCM.DC ---
Discharge Instructions Outpatient Procedure Reason For Visit: VAGINAL DELIVERY Follow Up Care Please Follow Up With: Manisha Teixeira CNM Test Results: Test results from this visit will be discussed in further detail at your follow-up appointment, if applicable. Discharge Plan Admission Admit Date/Time: 09/04/20 18:40 Attending Provider: Elena Orellana Primary Care Provider: Elena Orellana Discharge Orders/Prescriptions Prescriptions: No Action multivitamin [Multiple Vitamins] Tablet 1 tablet PO DAILY RF: 0 sodium chloride 4 ML solution for nebulization 1 dose INHALATION BID RF: 0 albuterol sulfate 1 INHALER inhaler 1 puff INHALATION BID RF: 0 PNV cmb#95-ferrous fumarate-FA 1 EACH tablet 1 ea PO DAILY RF: 0 armiprbqasy-qedatlspkj-quhydmj 100-50-75 mg(d) /150 mg (n) tablets, sequential 1 ea PO BID RF: 0 ferrous sulfate 325 MG tablet 325 mg PO DAILY RF: 0 xxejnp-ydjashrp-zjnnfug 1 CAPSULE capsule 3 - 4 capsule PO RF: 0 Referrals: Elena Orellana MD [Primary Care Provider] -
[2020-09-07 15:00] VITALS: BP 132/82; PULSE 105; RESP 16; TEMP 36.4
--- NOTE | 2020-09-08 12:11 | PCM.DC.SUM ---
Providers Date of Admission: 09/04/20 Primary Care Physician: Dr. Elena Orellana MD Reason For Visit: VAGINAL DELIVERY Diagnosis Discharge Diagnosis (1) (normal spontaneous vaginal delivery): Status: Acute Code(s): O80 - Encounter for full-term uncomplicated delivery Plan: Medications at Discharge Home Medications albuterol sulfate 1 puff INHALATION BID 07/31/16 sodium chloride 1 dose INHALATION BID 07/31/16 PNV cmb#95-ferrous fumarate-FA 1 ea PO DAILY 11/10/19 elexacaftor 100 mg-tezacaf 50mg-ivacaf 75mg(d)/ivacaf 150mg(n) tablets 1 ea PO BID 05/20/20 multivitamin 1 tablet PO DAILY 08/16/20 ferrous sulfate 325 mg PO DAILY 09/04/20 iswkre-qqmomxom-iwwrtpl 3 - 4 capsule PO 09/04/20 ibuprofen 600 mg PO Q6H PRN #30 tab 09/07/20 Hospital Course Summary of Care Provided Hospital Course: Presented to labor and delivery on 09/06/20. Cystic Fibrosis and Gestational Diabetes Class A1. Uncomplicated PN course and discharge home on PPD #1. ABG / Lab / Microbiology Data Result Diagrams: 09/04/20 19:35 D/C Instructions Please Follow Up With: Manisha Teixeira CNM Meaningful Use Info Meaningful Use Diagnoses (Choose all that apply): None applicable Discharge Plan Admission Admit Date/Time: 09/04/20 18:40 Attending Provider: Elena Orellana Primary Care Provider: Elena Orellana Instructions Patient Instructions: After a Vaginal Discharge Orders/Prescriptions Prescriptions: New ibuprofen 600 mg Tablet 600 mg PO Q6H PRN Qty: 30 RF: 0 No Action multivitamin [Multiple Vitamins] Tablet 1 tablet PO DAILY RF: 0 sodium chloride 4 ML solution for nebulization 1 dose INHALATION BID RF: 0 albuterol sulfate 1 INHALER inhaler 1 puff INHALATION BID RF: 0 PNV cmb#95-ferrous fumarate-FA 1 EACH tablet 1 ea PO DAILY RF: 0 glmrguadezx-jryiugzoyz-qqshheo 100-50-75 mg(d) /150 mg (n) tablets, sequential 1 ea PO BID RF: 0 ferrous sulfate 325 MG tablet 325 mg PO DAILY RF: 0 zplogy-sxftpbzh-lhkurab 1 CAPSULE capsule 3 - 4 capsule PO RF: 0 Referrals: Elena Orellana MD [Primary Care Provider] - (2 week virtual visit and 6 week PP visit) Disposition Patient Disposition: Home, self care
== END 2020-09-07 15:40 | disposition home or self-care (01) | DRG 806 ==
PROVIDERS: Admitting Provider Obstetrics & Gynecology; PCP Obstetrics & Gynecology; Visit Provider Obstetrics & Gynecology
DX: O99.284 Endocrine, nutritional and metabolic diseases complicating childbirth (principal); E84.9 Cystic fibrosis, unspecified; Z37.0 Single live birth; O36.63X0 Maternal care for excessive fetal growth, third trimester, not applicable or unspecified; Z3A.39 39 weeks gestation of pregnancy; O24.420 Gestational diabetes mellitus in childbirth, diet controlled; O70.1 Second degree perineal laceration during delivery
CPT/HCPCS: 59025; 59050; 82962; 85025; 86850; 86900; 86901; 99218; J7120; G0378

== ENCOUNTER 2022-05-16 21:45 | Emergency (ER) | payer OTHER, MEDICAID, SELFPAY ==
[2022-05-16 21:46] VITALS: BP 119/76; PULSE 94; RESP 16; TEMP 36.9; O2SAT 100; BMI 25.5
[2022-05-17 00:17] VITALS: BP 127/82; PULSE 93; RESP 16; O2SAT 98
--- NOTE | 2022-05-17 01:06 | EKG12_ITS ---
Test Reason : DYSRHYTHMIA Blood Pressure : / mmHG Vent. Rate : 078 BPM Atrial Rate : 078 BPM P-R Int : 162 ms QRS Dur : 080 ms QT Int : 362 ms P-R-T Axes : 070 041 033 degrees QTc Int : 412 ms Normal sinus rhythm Normal ECG Confirmed by JOSE RAMON WALLACE, GIANNI ([id number]), scientific publications editor LISA FERRO ([id number]) on 05/18/2022 6:37:38 AM Referred By: SWATHI Confirmed By:VAHID ALBRIGHT MD
[2022-05-17] MEDS: Ondansetron ODT 4 MG Tablet PO (02:36)
--- NOTE | 2022-05-17 02:56 | NURSING ---
multiple IV attempts made to obtain IV access by multiple RN's unsuccessful. Notified MD in which PO kazfran was ordered.
--- NOTE | 2022-05-17 03:37 | EX.ED.DYSGE1 ---
HPI History of Present Illness Chief Complaint: Nausea/Vomiting Narrative Narrative: Patient is a 26-year-old female who reports previous bouts of syncope. She states that she and her have both been feeling nauseous for the last day and tonight she had bouts of vomiting. She states she got up from her bed and was walking to the kitchen to get a glass of water when she had a syncopal event. She states that she did not have any type of chest discomfort or palpitations prior to the event occurring. She states she do not think much of this but the nausea persisted and therefore she presents to the hospital for evaluation [facility] Medical History (Updated 05/17/22 @ 03:[address] Haider Cortez, DO) Bronchiectasis Cystic fibrosis Depression AIYANA (distal intestinal obstruction syndrome) Duodenal ulcer GDM (gestational diabetes mellitus) Missed Sinusitis Subchorionic hemorrhage in first trimester Syncope (05/01/20) Home Medications albuterol sulfate 90 mcg/actuation aerosol inhaler 1 puff inhalation BID CF 07/31/16 [History Last Taken 11/11/19] sodium chloride 3 % for nebulization 1 dose inhalation BID CF 07/31/16 [History Last Taken 09/04/20] vit no.95-ferrous fumarate 28 mg-folic acid 800 mcg tablet 1 ea PO DAILY supplement 11/10/19 [History Last Taken 09/04/20] elexacaftor 100 mg-tezacaf 50mg-ivacaf 75mg(d)/ivacaf 150mg(n) tablets 1 ea PO BID CF 05/20/20 [History Last Taken 09/04/20] multivitamin (Multiple Vitamins tablet) 1 tablet PO DAILY supplement 08/16/20 [History Last Taken 09/04/20] ferrous sulfate 325 mg (65 mg iron) tablet 325 mg PO DAILY SUPPLEMENT 09/04/20 [History Last Taken 09/04/20] nhysln-chautuwp-nadccoz 24,000-76,000-120,000 unit capsule,delayed rel 3 - 4 capsule PO CF 09/04/20 [History Last Taken 09/04/20] ibuprofen 600 mg tablet 600 mg PO Q6H PRN #30 tabs 09/07/20 [Rx Last Taken Unknown] ondansetron 4 mg disintegrating tablet 4 mg PO TID PRN nausea and vomiting #21 tabs 05/17/22 [Rx Last Taken Unknown] Allergy/AdvReac Type Severity Reaction Status Date / Time vancomycin Allergy Mild Itching Verified 05/16/22 21:46 Surgical History embolization History of dilatation and curettage (11/2019) History of sinus surgery Social History (Updated 08/16/20 @ 13:44 by Deepali Guallpa PA, PA) Smoking Status: Never smoker ROS ROS ED Constitutional Constitutional ED: Denies chills or fever(s) Eyes Eyes: Denies change in vision ENT ENT ED: Denies sore throat Cardiovascular Cardiovascular: Denies chest pain or palpitations Respiratory/Chest Respiratory/Chest: Denies cough or dyspnea Gastrointestinal Gastrointestinal: Reports nausea and vomiting; Denies abdominal pain or diarrhea Genitourinary Genitourinary ED: Denies dysuria or hematuria Musculoskeletal Musculoskeletal: Denies myalgias Integumentary Denies rash Neurologic Neurologic: Reports other Details: Positive syncope ; Denies headache(s) Hematologic/Lymphatic Hematologic/Lymphatic: Denies easy bleeding or easy bruising EXAM Physical Exam Const Vital Signs: 05/16/22 21:46 05/17/22 00:17 Temperature 98.4 F Temperature Source Temporal Pulse Rate 94 93 Respiratory Rate 16 16 Blood Pressure 119/76 127/82 H Blood Pressure Mean 90 97 Pulse Ox 100 98 Oxygen Delivery Method Room Air Room Air Positive well nourished and well developed General Appearance ED: well developed HEENT Reports dry mucous membranes HEENT Narrative: Normocephalic atraumatic Mouth ED: Yes dry mucous membranes Mouth: dry mucous membranes Eyes PERRL and EOMs intact bilaterally General Eye ED: Negative for scleral icterus Neck supple Resp normal respiratory effort and clear to auscultation bilaterally Cardio regular rate and regular rhythm Rate: other Other Details: Radial pulses are +2-4 bilaterally are equal and symmetric GI non-tender and non-distended GI Narrative: Abdomen is soft nontender nondistended hyperactive bowel sounds no voluntary guarding or rigidity no pulsatile mass Auscultation: hyperactive bowel sounds Palpation: soft Extremity normal to inspection Neuro oriented x3 and CN's II-XII intact bilaterally Sensorium / Orientation: alert Psych mental status grossly normal Skin no rashes or lesions noted and skin turgor normal General Skin Exam: Negative for jaundice MDM MDM MDM Narrative Medical decision making narrative: Patient presented to the ER stable vitals and a soft nonsurgical abdomen. Her history is consistent with orthostasis and secondary to this I elected to order basic labs and IV fluids. The patient had 8 IV attempts performed that were unsuccessful and she did not want to be poked any further. Therefore she was given oral Zofran and oral hydration. She was able to keep the fluid down and was able to ambulate to and from the bathroom without any syncopal event. I reevaluated the patient and she remains awake and alert with normal neurologic exam and soft nonsurgical abdomen. I discussed possible ultrasound attempt but she states she is feeling better and as she is able to hold fluid down she is not concerned about having blood work or IV fluids and therefore we discharged at this time. Discharge Plan Triage Chief Complaint: Nausea/Vomiting ED Provider: Haider Cortez Dx/Rx/DC Orders Clinical Impression: Nausea & vomiting, Dehydration, Syncope Instructions: ED Dehydration (Adult), ED Gastroenteritis, Viral (Adult) Prescriptions: New ondansetron 4 mg tablet,disintegrating 4 mg PO TID PRN (Reason: nausea and vomiting) Qty: 21 0RF No Action multivitamin [Multiple Vitamins] Tablet 1 tablet PO DAILY sodium chloride 4 ML solution for nebulization 1 dose INHALATION BID Label Comments: INHALE 4 ML BY NEBULIZER TWICE DAILY. albuterol sulfate 1 INHALER inhaler 1 puff [facility] BID [facility] 1 EACH tablet 1 ea PO DAILY wpzcpfrezzy-snspabrjqe-rtkvnxx 100-50-75 mg(d) /150 mg (n) tablets, sequential 1 ea PO BID ferrous sulfate 325 MG tablet 325 mg PO DAILY vvoytd-zlmxfzan-utbqfao 1 CAPSULE capsule 3 - 4 capsule PO Rx Instructions: 3 CAPSULES W/SNACKS 4 CAPSULES W/MEALS ibuprofen 600 mg Tablet 600 mg PO Q6H PRN Qty: 30 0RF Stand Alone Forms: ED Work / School Excuse Primary Care Provider: Care Physician,No Primary Referrals: Karen Mccann MD [Med Staff - Insurance Job Titles] - Care Physician,No Primary [Primary Care Provider] - Activity Restrictions/Additional Instructions: Please keep yourself well-hydrated and use the Zofran to control any further bouts of nausea or vomiting. If your symptoms or not controlled with the prescribed medication or you have any further concerns please return to the ER for repeat evaluation Disposition Disposition: Home, Self Care
== END 2022-05-17 03:50 | disposition home or self-care (01) ==
PROVIDERS: Emergency Provider Emergency Medicine; Visit Provider Emergency Medicine
DX: R11.2 Nausea with vomiting, unspecified (principal); E86.0 Dehydration; R55 Syncope and collapse
CPT/HCPCS: 93005; 99283; J7030; A4216; J2405

== ENCOUNTER 2022-05-20 08:35 | Emergency (ER) | payer OTHER, MEDICAID, SELFPAY ==
[2022-05-20 08:35] VITALS: BP 149/103; PULSE 103; RESP 16; TEMP 35.8; O2SAT 100; BMI 25.7
--- NOTE | 2022-05-20 09:03 | RAD_ITS ---
STUDY: X-RAY - ABDOMEN/PELVIS REASON FOR EXAM: Female, 26 years old. Abdominal cramping TECHNIQUE: Two AP supine views of the abdomen and pelvis. COMPARISON: None. FINDINGS: Normal visualized lung bases. There is an unremarkable bowel gas pattern. There is no demonstrated free abdominal air. There are granulomatous calcifications in the spleen. Normal soft tissue structures. Normal visualized osseous structures. There is artifact from jewelry. RAD/Abdomen Single View (Portable) IMPRESSION: No obstruction. Electronically Signed: Felton Vang MD at 10:20 EST ,
--- NOTE | 2022-05-20 09:13 | EDS_ITS ---
HPI HPI - GI History of Present Illness Chief Complaint: Nausea/Vomiting Narrative Narrative: 26-year-old female presenting for reevaluation. She was seen on the fifth for nausea and vomiting. Apparently she and her were both feeling nauseous. Apparently they had a lot of difficulty getting an IV the last time she was here, and she opted to take oral Zofran and was able to hydrate both in the emergency room and has been able to do so at home. She states he has a little bit of epigastric burning and sometimes it aches. She has vomited several times since being sent home with Zofran and she has been taking omeprazole due to history of GERD. She has tried Tums as well. Patient states he is able to get a lot of fluids into her and estimates about 120 cc a day. She is eating 3 times a day although these are small meals. She is making urine and stool. She has not had a fever. She does not have a cough or shortness of breath. She states that she does have cystic fibrosis. She states she does not believe she could be as her has had a vasectomy. [facility] Medical History Bronchiectasis Cystic fibrosis Depression AIYANA (distal intestinal obstruction syndrome) Duodenal ulcer GDM (gestational diabetes mellitus) Missed Sinusitis Subchorionic hemorrhage in first trimester Syncope (05/01/20) Home Medications albuterol sulfate 90 mcg/actuation aerosol inhaler 1 puff inhalation BID CF 07/31/16 [History Last Taken 11/11/19] elexacaftor 100 mg-tezacaf 50mg-ivacaf 75mg(d)/ivacaf 150mg(n) tablets 1 ea PO BID CF 05/20/20 [History Last Taken 09/04/20] multivitamin (Multiple Vitamins tablet) 1 tablet PO DAILY supplement 08/16/20 [History Last Taken 09/04/20] lihksj-xkqimuvd-odxzbug 24,000-76,000-120,000 unit capsule,delayed rel 3 capsule PO TIDCM CF 09/04/20 [History Last Taken 09/04/20] ondansetron 4 mg disintegrating tablet 4 mg PO TID PRN nausea and vomiting #21 tabs 05/17/22 [Rx Last Taken Unknown] cetirizine 10 mg tablet (Zyrtec) 10 mg PO DAILY 05/20/22 [History Last Taken Unknown] fluticasone propionate 50 mcg/actuation nasal spray,suspension 2 spray intranasal DAILY 05/20/22 [History Last Taken Unknown] lubiprostone 24 mcg capsule 24 mcg PO BID 05/20/22 [History Last Taken Unknown] omeprazole 20 mg capsule,delayed release 20 mg PO DAILY 05/20/22 [History Last Taken Unknown] promethazine 25 mg tablet 25 mg PO TID PRN nausea and vomiting #20 tabs 05/20/22 [Rx Last Taken Unknown] sucralfate 100 mg/mL oral suspension (Carafate) 10 ml PO BID PRN epigastric pain #400 mL 05/20/22 [Rx Last Taken Unknown] Allergy/AdvReac Type Severity Reaction Status Date / Time vancomycin Allergy Mild Itching Verified 05/20/22 08:37 Surgical History embolization History of dilatation and curettage (11/2019) History of sinus surgery Social History Smoking Status: Never smoker ROS ROS ED Constitutional Constitutional ED: Denies chills or fever(s) ENT ENT ED: Denies rhinorrhea or sore throat Cardiovascular Cardiovascular: Denies chest pain or palpitations Respiratory/Chest Respiratory/Chest: Denies cough or dyspnea Gastrointestinal Gastrointestinal: Reports abdominal pain, nausea and vomiting; Denies diarrhea Genitourinary Genitourinary ED: Denies dysuria Musculoskeletal Musculoskeletal: Denies back pain or myalgias Integumentary Denies abscess or Abrasions Neurologic Neurologic: Denies headache(s) or paresthesias Psychiatric Psychiatric: Denies anxiety or depression Endocrine Endocrinology: Denies polydipsia or polyphagia EXAM Physical Exam Const Vital Signs: 05/20/22 08:35 Temperature 96.4 F L Temperature Source Temporal Pulse Rate 103 H Respiratory Rate 16 Blood Pressure 149/103 H Blood Pressure Mean 118 Pulse Ox 100 Oxygen Delivery Method Room Air Positive well nourished General Appearance ED: NAD; Negative for pallor HEENT normocephalic and atraumatic Eyes PERRL and EOMs intact bilaterally General Eye ED: Negative for pale conjunctiva or scleral icterus Resp normal respiratory effort and clear to auscultation bilaterally Auscultation: Negative for rales, rhonchi or wheezes Cardio regular rate and regular rhythm GI GI Narrative: Benign abdomen. Mild epigastric tenderness Back/Spine no CVA tenderness Extremity full ROM Neuro CN's II-XII intact bilaterally, moves all extremities and no sensory deficits noted Sensorium / Orientation: alert Psych mental status grossly normal and thought process normal Skin no wounds General Skin Exam: Negative for jaundice or pallor MDM MDM MDM Narrative Medical decision making narrative: Patient presenting with continued nausea but has been able to eat and drink at home. She reports she has been drinking plenty of fluids and making urine and stool. She is also eating 3 times a day although there are small meals. She does intermittently have vomiting. She requested an IV as well as IV fluids. She requested something for nausea because Zofran was not helping. An IV line was established and she was ordered Reglan. Blood work was obtained. After this the patient states that the IV hurt and she wanted it removed. At this point she was given an IM dose of Phenergan 12.5 mg. Urinalysis obtained and is negative for infection. Urine hCG negative. Renal function and electrolytes within normal limits. LFTs are unremarkable. Lipase normal at 16. CBC does not show any elevated white blood cell count and her hemoglobin is stable at 13 .9. Platelets are normal at 373. Patient feeling improved after Phenergan was given. I did obtain a KUB to ensure there was not an obstructive process and on my interpretation there is not. The radiologist interprets this and agrees of the I feel she is stable for discharge at this point. Patient requested prescription for Phenergan which was provided. She was also given some Carafate to her history of GERD. She was given referral to GI. Impression: 1. Nausea/vomiting 2. History of GERD 3. Abdominal pain Lab Data Attestation: I reviewed the patient's lab results. Labs: Laboratory Results - last 24 hr 05/20/22 05/20/22 05/20/22 09:05 09:05 09:25 WBC 6.7 RBC 4.65 Hgb 13.9 Hct 41.7 MCV 89.7 MCH 29.9 MCHC 33.3 RDW Std Deviation 38.7 RDW Coeff of Shai 11.9 Plt Count 373 MPV 9.2 Immature Gran % (Auto) 0.300 Neut % (Auto) 69.4 Lymph % (Auto) 23.1 Gage % (Auto) 5.8 Eos % (Auto) 1.0 Baso % (Auto) 0.4 Absolute Neuts (auto) 4.7 Absolute Lymphs (auto) 1.55 Nucleated RBC % 0 Sodium 138 Potassium 3.6 Chloride 103 Carbon Dioxide 26.0 Anion Gap 9 BUN 13 Creatinine 0.95 Estim Creat Clear Calc 76.13 Est GFR (MDRD) Af Amer 90 Est GFR (MDRD) Non-Af 74 BUN/Creatinine Ratio 13.7 Glucose 148 H Calcium 9.3 Total Bilirubin 0.60 Direct Bilirubin 0.20 AST 12 L ALT 45 Alkaline Phosphatase 119 H Total Protein 8.1 Albumin 4.0 Globulin 4.1 Albumin/Globulin Ratio Cancelled Lipase 16 L Urine Color Straw Urine Clarity Clear Urine pH 6.5 Ur Specific [place] 1.005 Urine Protein Negative Urine Glucose (UA) Normal Urine Ketones Negative Urine Occult Blood Negative Urine Nitrite Negative Urine Bilirubin Negative Urine Urobilinogen Normal Ur Leukocyte Esterase Negative Urine RBC 0 SEEN Urine WBC 0 SEEN Ur Squamous Epith Cells 0-5 SEEN Urine Bacteria 0 SEEN Urine Mucus 0 SEEN Urine Test Negative Radiography Diagnostic Testing: Clinical Impression(s) from Imaging Studies KUB X-Ray 05/20/22 09:03 IMPRESSION: No obstruction. Electronically Signed: Felton Vang MD at 10:20 EST , Discharge Plan Triage Chief Complaint: Nausea/Vomiting ED Provider: Ramiro Rudd Dx/Rx/DC Orders Instructions: ED Gastroenteritis, Viral (Adult) Prescriptions: New sucralfate [Carafate] 100 mg/mL suspension 10 ml PO BID PRN (Reason: epigastric pain) Qty: 400 0RF promethazine 25 mg tablet 25 mg PO TID PRN (Reason: nausea and vomiting) Qty: 20 0RF No Action multivitamin [Multiple Vitamins] Tablet 1 tablet PO DAILY albuterol sulfate 1 INHALER inhaler 1 puff INHALATION BID lwzyyfmngpj-izabetfefn-dadsuwj 100-50-75 mg(d) /150 mg (n) tablets, sequential 1 ea PO BID mmiuww-txqvtumc-lrhcute 1 CAPSULE capsule 3 capsule PO TIDCM Rx Instructions: 3 CAPSULES W/SNACKS 4 CAPSULES W/MEALS ondansetron 4 mg tablet,disintegrating 4 mg PO TID PRN (Reason: nausea and vomiting) Qty: 21 0RF cetirizine [Zyrtec] 10 mg Tablet 10 mg PO DAILY omeprazole 20 mg capsule,delayed release(DR/EC) 20 mg PO DAILY Label Comments: TAKE 1 CAPSULE BY MOUTH ONCE DAILY. TAKE ON AN EMPTY STOMACH fluticasone propionate 50 mcg/actuation spray,suspension 2 spray INTRANASAL DAILY Label Comments: PLACE 2 SPRAYS IN EACH NOSTRIL ONCE DAILY NEEDED. lubiprostone 24 mcg capsule 24 mcg PO BID Label Comments: TAKE 1 CAPSULE BY MOUTH TWICE A DAY Primary Care Provider: Care Physician,No Primary Referrals: Friend,Nishant, [Med Staff - Active Staff] - 3-5 Days Care Physician,No Primary [Primary Care Provider] - Disposition Disposition: Home, Self Care
[2022-05-20] MEDS: 0.9% Normal Saline 1,000 ML 999 ML IV (09:25)
[2022-05-20 09:34] LABS: Bacteria 0 SEEN /hpf (None Seen); Color, Urine Straw (Yellow); Glucose, Dipstick Normal (Normal); Ketone-Dipstick Negative (Negative); Leukocyte Esterase-Dipstick Negative /ul (Negative); Mucous, Urine 0 SEEN /hpf (<or=2+); Nitrite-Dipstick Negative (Negative); Occult Blood-Urine Negative /ul (Negative); Protein-Dipstick Negative (Negative); Red Blood Cells-Urine 0 SEEN /hpf (0-5); Specific Gravity, Urine 1.005 (1.002-1.030); Urine Bilirubin Dipstick Negative (Negative); Urine Clarity Clear (Clear); Urine Urobilinogen Normal (Normal); Urine pH 6.5 (5.0 - 8.0); White Blood Cells 0 SEEN /hpf (0-5)
[2022-05-20 09:43] LABS: Internal QC Validated? YES +Cl - CLEAR BKGD; Pregnancy, Urine Negative Negative; Squamous Epithelial Cells - UA 0-5 SEEN /hpf (5-10)
[2022-05-20 09:45] LABS: AST(SGOT) 12 U/L (15-37); Alanine Aminotransfer ALT/SGPT 45 U/L (13-56); Alkaline Phosphatase 119 U/L (45-117); Anion Gap 9 (5-15); BUN 13 mg/dL (7-18); BUN/Creat Ratio 13.7 RATIO (10-20); Calcium,Total 9.3 mg/dL (8.5-10.1); Chloride 103 mmol/L (98-107); Creatinine, Serum 0.95 mg/dL (0.55-1.02); EST Glomerular Filtration Rate 74 mL/min (>60); Est Glom Filt Rate - Afr Amer 90 mL/min (>60); Estimated Creatinine Clearance 76.13 ml/min; Globulin 4.1 g/dL (2.2-4.2); Glucose 148 mg/dL (74-106); Lipase 16 U/L (73-393); Potassium 3.6 mmol/L (3.5-5.1); Protein, Total 8.1 g/dL (6.4-8.2); Sodium Level 138 mmol/L (136-145)
[2022-05-20 09:51] LABS: Absolute Lymphocyte Count 1.55 X10^3/uL (0.83-4.51); Absolute Neutrophil Count 4.7 X10^3/uL (2.0-7.7); Basophil# 0.03 X10^3/uL; Basophil% 0.4 % (0-1); Eosinophil# 0.07 X10^3/uL; Hematocrit 41.7 % (37-47); Hemoglobin 13.9 g/dL (12.0-15.0); Lymphocyte # 1.55 X10^3/ul (0.83-4.51); Lymphocyte % 23.1 % (19-41); Mean Corp Hgb Conc 33.3 g/dL (32-36); Mean Corpuscular Hgb 29.9 pg (27.0-32.0); Mean Corpuscular Volume 89.7 fL (81-99); Mean Platelet Vol. 9.2 fl (6.2-12.0); Monocyte# 0.39 X10^3/uL; Monocyte% 5.8 % (0-10); NRBC Flagged by Analyzer 0 % (0-5); Neutrophil # 4.65 X10^3/uL (2.7-7.7); Neutrophil % 69.4 % (47-70); Platelet Count 373 K/mm3 (150-450); RBC Distribution Width CV 11.9 % (11.6-14.6); RBC Distribution Width SD 38.7 fl (35.1-43.9); Red Blood Count 4.65 M/mm3 (4.2-5.4); White Blood Count 6.7 K/mm3 (4.4-11.0)
[2022-05-20] MEDS: proMETHazine 25 MG/ML Syringe 12.5 MG IM (10:01)
[2022-05-20 10:47] VITALS: BP 121/80; PULSE 80; RESP 16; O2SAT 99
== END 2022-05-20 10:55 | disposition home or self-care (01) ==
PROVIDERS: Emergency Provider Student in an Organized Health Care Education/Training Program; Visit Provider Student in an Organized Health Care Education/Training Program
DX: R11.2 Nausea with vomiting, unspecified (principal); R10.9 Unspecified abdominal pain; K21.9 Gastro-esophageal reflux disease without esophagitis; Z79.899 Other long term (current) drug therapy
CPT/HCPCS: 74018; 80048; 80076; 81001; 81025; 83690; 85025; 96372; 96374; 99283; J7030; A4216

== ENCOUNTER 2023-03-19 07:02 | Observation (INO) | payer OTHER, SELFPAY ==
[2023-03-19] VITALS (8 sets, daily range): BP systolic 122–149; BP diastolic 82–103; PULSE 77–115; RESP 16–22; TEMP 36.4–36.6; O2SAT 96–100; BMI 23.3
--- NOTE | 2023-03-19 07:14 | ED.VIS.GI ---
HPI HPI - GI History of Present Illness Chief Complaint: Abd Pain Detail of Chief Complaint: Abdominal pain Informant: patient Narrative Narrative: Patient presents to the emergency department with complaint of abdominal pain that started around 2 AM. Patient thinks it is heartburn. She describes it as upper abdomen, radiating across into her chest. Patient tried taking Tums but not getting any relief. She does have prior history of heartburn. She had a similar episode of pain 4 days ago that lasted about 5 hours and then resolved. Patient with history of cystic fibrosis and has had a prior Maricruz fundoplication. She takes daily omeprazole. 4 days ago she felt it was related to the fact that she ate [place] food. She denies eating any spicy or greasy foods last evening. She has had nausea but no vomiting. She denies any diarrhea. She denies fever or urinary symptoms. Patient years ago had similar episode and she states that she was treated for pancreatitis and her symptoms resolved. Last menstrual period was March 07. [facility] Medical History (Updated 03/19/23 @ 10:[address] Nadine Cerda, ) Bronchiectasis Cystic fibrosis Depression AIYANA (distal intestinal obstruction syndrome) Duodenal ulcer GDM (gestational diabetes mellitus) Missed Sinusitis Subchorionic hemorrhage in first trimester Syncope (05/01/20) Home Medications albuterol sulfate 90 mcg/actuation aerosol inhaler 1 puff inhalation BID CF 07/31/16 [History Last Taken 11/11/19] elexacaftor 100 mg-tezacaf 50mg-ivacaf 75mg(d)/ivacaf 150mg(n) tablets 1 ea PO BID CF 05/20/20 [History Last Taken 09/04/20] multivitamin (Multiple Vitamins tablet) 1 tablet PO DAILY supplement 08/16/20 [History Last Taken 09/04/20] uwjvcn-kpiyzzwm-ccdpsaq 24,000-76,000-120,000 unit capsule,delayed rel 3 capsule PO TIDCM CF 09/04/20 [History Last Taken 09/04/20] ondansetron 4 mg disintegrating tablet 4 mg PO TID PRN nausea and vomiting #21 tabs 05/17/22 [Rx Last Taken Unknown] cetirizine 10 mg tablet (Zyrtec) 10 mg PO DAILY 05/20/22 [History Last Taken Unknown] fluticasone propionate 50 mcg/actuation nasal spray,suspension 2 spray intranasal DAILY 05/20/22 [History Last Taken Unknown] lubiprostone 24 mcg capsule 24 mcg PO BID 05/20/22 [History Last Taken Unknown] omeprazole 20 mg capsule,delayed release 20 mg PO DAILY 05/20/22 [History Last Taken Unknown] promethazine 25 mg tablet 25 mg PO TID PRN nausea and vomiting #20 tabs 05/20/22 [Rx Last Taken Unknown] sucralfate 100 mg/mL oral suspension (Carafate) 10 ml PO BID PRN epigastric pain #400 mL 05/20/22 [Rx Last Taken Unknown] Allergy/AdvReac Type Severity Reaction Status Date / Time vancomycin Allergy Mild Itching Verified 03/19/23 07:12 Surgical History embolization History of dilatation and curettage (11/2019) History of sinus surgery Social History Smoking Status: Never smoker ROS ROS ED Review of Systems ROS Unobtainable: other Constitutional Constitutional ED: Reports lethargy; Denies chills, fever(s), sweats or weight loss Eyes Eyes: Denies blurry vision, change in vision or diplopia ENT ENT ED: Denies rhinorrhea or sore throat Cardiovascular Cardiovascular: Denies chest pain, orthopnea or racing heartbeat Respiratory/Chest Respiratory/Chest: Denies cough, dyspnea, dyspnea on exertion, orthopnea or sputum Gastrointestinal Gastrointestinal: Reports abdominal pain and nausea; Denies diarrhea or vomiting Genitourinary Genitourinary ED: Denies dysuria, hematuria or urinary frequency Musculoskeletal Musculoskeletal: Denies arthralgias, back pain, myalgias or neck pain Integumentary Denies abscess, Abrasions or rash Neurologic Neurologic: Denies headache(s) or weakness Psychiatric Psychiatric: Denies anxiety, depression or suicidal thoughts Endocrine Endocrinology: Denies polydipsia, polyphagia or polyuria Hematologic/Lymphatic Hematologic/Lymphatic: Denies easy bleeding, easy bruising or lymphadenopathy Allergic/Immunologic Allergic/Immunologic ED: Denies mouth swelling, tongue swelling or urticaria EXAM Physical Exam Const Vital Signs: 03/19/23 07:03 03/19/23 07:55 03/19/23 09:10 Temperature 97.7 F L Temperature Source Temporal Pulse Rate 115 H 77 99 Respiratory Rate 22 H 18 18 Blood Pressure 149/103 H 149/89 H 147/93 H Blood Pressure Mean 118 109 111 Pulse Ox 100 99 99 Oxygen Delivery Method Room Air Room Air Room Air Positive well nourished and well developed General Appearance ED: well developed and NAD HEENT Reports TM's clear and moist mucous membranes normocephalic and atraumatic; Negative for trauma or tenderness Tympanic Membrane ED: Yes TM's clear Eyes PERRL and EOMs intact bilaterally General Eye ED: Negative for pale conjunctiva or scleral icterus Neck no lymphadenopathy, supple and no JVD General: Negative for tenderness Chest Wall inspection of chest normal and palpation of chest normal Chest: Negative for tenderness Resp normal respiratory effort and clear to auscultation bilaterally Effort and Inspection: Negative for respiratory distress or pain with movement Auscultation: Negative for rhonchi, wheezes or diminished lung sounds Cardio regular rate, regular rhythm, S1 normal heart sound, S2 normal heart sound and no murmurs Peripheral Pulses: pulses 2+ throughout GI normal to inspection, nondistended, normoactive bowel sounds, soft to palpation, non-distended and no masses GI Narrative: Tenderness to palpation in the epigastric region with guarding. There is no rebound, rigidity, or pineal signs. No mass palpated Back/Spine no CVA tenderness and no thoracic nor lumbar tenderness Extremity normal to inspection General Extremety ED: Negative for edema General Extremity: Negative for edema Neuro oriented x3, CN's II-XII intact bilaterally, no sensory deficits noted and gait normal Sensorium / Orientation: awake, alert, oriented to person, oriented to place and oriented to time Motor Exam: strength 5/5 throughout and strength abnormal Psych mental status grossly normal Skin no rashes or lesions noted and no wounds MDM MDM MDM Narrative Medical decision making narrative: Patient with upper abdomen pain that is severe. In the differential would be GERD versus peptic ulcer disease versus pancreatitis versus bowel obstruction or bowel perforation. IV line established. Patient was given Protonix IV. She was given a GI cocktail. She continued to complain of pain in received Dilaudid half milligram IV and Zofran 4 mg IV. CBC with differential white count 6.7 with hemoglobin 12.9 and platelet count of 348. Chemistries unremarkable. LFTs were normal. Lipase normal at 1010. with. Urinalysis was normal. Patient continued to complain of pain therefore CT scan was obtained without contrast as we had a difficult time establishing a peripheral IV and I had to place an external jugular IV therefore could not give her IV contrast. CT scan essentially was read as unremarkable other than she had evidence of prior Maricurz fundoplication. Patient continued to complain of pain was given a milligram of Dilaudid and 1 dose of Carafate. On repeat examination she is still complaining of not feeling well and does not feel comfortable going home. We will discussed with hospitalist to evaluate patient for admission Lab Data Attestation: I reviewed the patient's lab results. Labs: Laboratory Results - last 24 hr 03/19/23 03/19/23 07:52 08:06 WBC 6.7 RBC 4.41 Hgb 12.9 Hct 40.0 MCV 90.7 MCH 29.3 MCHC 32.3 RDW Std Deviation 40.5 RDW Coeff of Shai 12.1 Plt Count 348 MPV 9.1 Immature Gran % (Auto) 0.200 Neut % (Auto) 58.4 Lymph % (Auto) 32.6 [place] % (Auto) 6.2 Eos % (Auto) 1.8 Baso % (Auto) 0.8 Absolute Neuts (auto) 3.9 Absolute Lymphs (auto) 2.17 Nucleated RBC % 0 Sodium 140 Potassium 3.6 Chloride 107 Carbon Dioxide 27.0 Anion Gap 6 BUN 10 Creatinine 0.76 Estim Creat Clear Calc 94.32 Est GFR (MDRD) Af Amer 115 Est GFR (MDRD) Non-Af 95 BUN/Creatinine Ratio 13.1 Glucose 105 Lactic Acid 1.7 Calcium 9.7 Total Bilirubin 0.50 AST 9 L ALT 16 Alkaline Phosphatase 100 Total Protein 7.7 Albumin 4.1 Globulin 3.6 Albumin/Globulin Ratio 1.1 Lipase < 10 L Serum , Qual NEGATIVE Urine Color Yellow Urine Clarity Clear Urine pH 8.0 Ur Specific [place] 1.010 Urine Protein Negative Urine Glucose (UA) Normal Urine Ketones Negative Urine Occult Blood Negative Urine Nitrite Negative Urine Bilirubin Negative Urine Urobilinogen Normal Ur Leukocyte Esterase Negative Urine RBC 0 SEEN Urine WBC 0 SEEN Ur Squamous Epith Cells 0-5 SEEN Urine Bacteria 0 SEEN Urine Mucus 0 SEEN Radiography Diagnostic Testing: Clinical Impression(s) from Imaging Studies Abdomen/Pelvis CT 03/19/23 09:11 IMPRESSION: Evidence of a prior hiatal hernia repair. Enlarged uterus. Electronically Signed: Josue Flores MD at 10:00 EST , Discharge Plan Triage Chief Complaint: Abd Pain ED Provider: Nadine Cerda Dx/Rx/DC Orders Clinical Impression: Intractable abdominal pain, Hx of cystic fibrosis, H/O gastroesophageal reflux (GERD) Prescriptions: No Action multivitamin [Multiple Vitamins] Tablet 1 tablet PO DAILY albuterol sulfate 1 INHALER inhaler 1 puff INHALATION BID mrxatxskgjl-laqlxziyju-thdfwnd 100-50-75 mg(d) /150 mg (n) tablets, sequential 1 ea PO BID ubgfho-eiugvuqo-rqtnsmz 1 CAPSULE capsule 3 capsule PO TIDCM Rx Instructions: 3 CAPSULES W/SNACKS 4 CAPSULES W/MEALS ondansetron 4 mg tablet,disintegrating 4 mg PO TID PRN (Reason: nausea and vomiting) Qty: 21 0RF cetirizine [Zyrtec] 10 mg Tablet 10 mg PO DAILY omeprazole 20 mg capsule,delayed release(DR/EC) 20 mg PO DAILY Patient Comments: TAKE 1 CAPSULE BY MOUTH ONCE DAILY. TAKE ON AN EMPTY STOMACH fluticasone propionate 50 mcg/actuation spray,suspension 2 spray INTRANASAL DAILY Patient Comments: PLACE 2 SPRAYS IN EACH NOSTRIL ONCE DAILY NEEDED. lubiprostone 24 mcg capsule 24 mcg PO BID Patient Comments: TAKE 1 CAPSULE BY MOUTH TWICE A DAY sucralfate [Carafate] 100 mg/mL suspension 10 ml PO BID PRN (Reason: epigastric pain) Qty: 400 0RF promethazine 25 mg tablet 25 mg PO TID PRN (Reason: nausea and vomiting) Qty: 20 0RF Primary Care Provider: Care Physician,No Primary Referrals: Care Physician,No Primary [Primary Care Provider] - Disposition Disposition: Acute Care [facility]
[2023-03-19] MEDS: Mag Hydrox/Al Hydrox/Simeth 30 ML UDC PO (07:27)
[2023-03-19 08:01] LABS: Bacteria 0 SEEN /hpf (None Seen); Mucous, Urine 0 SEEN /hpf (<or=2+); Red Blood Cells-Urine 0 SEEN /hpf (0-5); White Blood Cells 0 SEEN /hpf (0-5)
[2023-03-19] MEDS: 0.9% Normal Saline (1000mL) 1,000 ML 125 ML IV ×3 (08:09→20:21)
[2023-03-19] MEDS: Pantoprazole Sodium 80 MG in 0.9% Normal Saline (50mL Bag) 15 ML 420 MG IV BOLUS (08:09)
[2023-03-19 08:10] LABS: Color, Urine Yellow (Yellow); Glucose, Dipstick Normal (Normal); Ketone-Dipstick Negative (Negative); Leukocyte Esterase-Dipstick Negative /ul (Negative); Nitrite-Dipstick Negative (Negative); Occult Blood-Urine Negative /ul (Negative); Protein-Dipstick Negative (Negative); Urine Bilirubin Dipstick Negative (Negative); Urine Clarity Clear (Clear); Urine Urobilinogen Normal (Normal)
[2023-03-19 08:15] LABS: Absolute Lymphocyte Count 2.17 X10^3/uL (0.83-4.51); Absolute Neutrophil Count 3.9 X10^3/uL (2.0-7.7); Basophil# 0.05 X10^3/uL; Basophil% 0.8 % (0-1); Eosinophil# 0.12 X10^3/uL; Eosinophils% 1.8 % (0-5); Hemoglobin 12.9 g/dL (12.0-15.0); Lymphocyte # 2.17 X10^3/ul (0.83-4.51); Lymphocyte % 32.6 % (19-41); Mean Corp Hgb Conc 32.3 g/dL (32-36); Mean Corpuscular Hgb 29.3 pg (27.0-32.0); Mean Corpuscular Volume 90.7 fL (81-99); Mean Platelet Vol. 9.1 fl (6.2-12.0); Monocyte# 0.41 X10^3/uL; Monocyte% 6.2 % (0-10); NRBC Flagged by Analyzer 0 % (0-5); Neutrophil # 3.89 X10^3/uL (2.7-7.7); Neutrophil % 58.4 % (47-70); Platelet Count 348 K/mm3 (150-450); RBC Distribution Width CV 12.1 % (11.6-14.6); RBC Distribution Width SD 40.5 fl (35.1-43.9); Red Blood Count 4.41 M/mm3 (4.2-5.4); White Blood Count 6.7 K/mm3 (4.4-11.0)
[2023-03-19 08:28] LABS: Internal QC Validated? YES +Cl - CLEAR BKGD; Pregnancy, Serum, hCG Quali. NEGATIVE Negative
[2023-03-19 08:39] LABS: Lactic Acid 1.7 mmol/L (0.4-1.9)
[2023-03-19 08:41] LABS: Squamous Epithelial Cells - UA 0-5 SEEN /hpf (5-10)
[2023-03-19 08:43] LABS: ALB/GLOB Ratio 1.1 RATIO (0.9-2.4); AST(SGOT) 9 U/L (15-37); Alanine Aminotransfer ALT/SGPT 16 U/L (13-56); Albumin, Serum 4.1 g/dL (3.2-5.0); Alkaline Phosphatase 100 U/L (45-117); Anion Gap 6 (5-15); BUN 10 mg/dL (7-18); BUN/Creat Ratio 13.1 RATIO (10-20); Calcium,Total 9.7 mg/dL (8.5-10.1); Chloride 107 mmol/L (98-107); Creatinine, Serum 0.76 mg/dL (0.55-1.02); EST Glomerular Filtration Rate 95 mL/min (>60); Est Glom Filt Rate - Afr Amer 115 mL/min (>60); Estimated Creatinine Clearance 94.32 ml/min; Globulin 3.6 g/dL (2.2-4.2); Glucose 105 mg/dL (74-106); Lipase < 10 U/L (13-75); Potassium 3.6 mmol/L (3.5-5.1); Protein, Total 7.7 g/dL (6.4-8.2); Sodium Level 140 mmol/L (136-145)
--- NOTE | 2023-03-19 09:11 | CT_ITS ---
STUDY: CT ABDOMEN AND PELVIS WITHOUT CONTRAST REASON FOR EXAM: Female, 27 years old. Abdominal pain. Gastroesophageal reflux disease. RADIATION DOSAGE (If Supplied By Facility): CTDIvol = ( 6.31 ) mGy, DLP = ( 302.69 ) mGycm TECHNIQUE: Transaxial images were obtained from the dome of the diaphragm to the symphysis pubis without oral contrast, and without intravenous contrast. Sagittal and coronal images were reconstructed. Individualized dose optimization techniques were used for this CT. COMPARISON: None. FINDINGS: The visualized lung bases are unremarkable. The visualized portions of the heart are within normal limits. Normal liver. Normal gallbladder and extrahepatic biliary system. There are multiple benign calcified granulomata of the spleen. Normal pancreas. Normal bilateral adrenal glands. Normal right kidney. Normal left kidney. Evidence of prior hiatal hernia repair. Normal small intestine. Scattered high density material is seen in the right hemicolon most likely representing ingestion of aluminum consults for gastroesophageal reflux. The appendix is visualized and appears normal. Normal abdominal aorta. Normal inferior vena cava. Normal retroperitoneum. Normal urinary bladder. Enlarged uterus. Follicles are seen in the right ovary. Normal abdominal wall. Normal osseous structures. Limbus vertebrae seen along the anterior superior endplate of the L3 vertebrae. CT/Abdomen/Pelvis without Cont IMPRESSION: Evidence of a prior hiatal hernia repair. Enlarged uterus. Electronically Signed: Josue Flores MD at 10:00 EST ,
[2023-03-19] MEDS: Ondansetron 4 MG/2 ML Vial IV ×2 (09:18→20:21)
[2023-03-19] MEDS: HYDROmorphone 0.5 MG/0.5 ML SYRINGE IV (09:18)
[2023-03-19] MEDS: HYDROmorphone 1 MG/ML Syringe IV (10:15)
[2023-03-19] MEDS: Sucralfate 1 GM Tablet PO (10:40)
--- NOTE | 2023-03-19 13:28 | HP.PCM.HOS_ITS ---
HPI - General General Date of Admission: 03/19/23 Date of Service: 03/19/23 Chief Complaint: Abdominal pain. HPI Narrative AYDEE MARTINEZ, is a 27 F who presents with epigastric abdominal pain. She experiences over the weekend and last for about 5 hours but then resolved. Today it persisted and she presented to the emergency room for evaluation. She underwent an extensive work-up that was unremarkable. But she was unable to feel any better. To which the hospital service was contacted. Patient does have a history of cystic fibrosis and has had pancreatitis in the past and has been hospitalized down at [facility]. She has never had any surgery for this and coronary her resolved on its own. PENDING SALE TO [facility] Medical History Bronchiectasis Cystic fibrosis Depression AIYANA (distal intestinal obstruction syndrome) Duodenal ulcer GDM (gestational diabetes mellitus) Missed Sinusitis Subchorionic hemorrhage in first trimester Syncope (05/01/20) Home Medications albuterol sulfate 90 mcg/actuation aerosol inhaler 1 puff inhalation BID PRN SORTNESS OF BREATH/WHEEZING 07/31/16 [History Last Taken 11/11/19] elexacaftor 100 mg-tezacaf 50mg-ivacaf 75mg(d)/ivacaf 150mg(n) tablets 2 ea PO DAILY CYSTIC FIBROSIS 05/20/20 [History Last Taken 03/18/23] knvkvu-ckcgdrgl-gfxyezg 24,000-76,000-120,000 unit capsule,delayed rel 4 capsule PO TIDCM CYSTIC FIBROSIS 09/04/20 [History Last Taken 03/18/23] fluticasone propionate 50 mcg/actuation nasal spray,suspension 1 spray intranasal DAILY NASAL CONGESTION 05/20/22 [History Last Taken 03/18/23] lubiprostone 24 mcg capsule 24 mcg PO BID CONSTIPATION 05/20/22 [History Last Taken 03/18/23] promethazine 25 mg tablet 25 mg PO TID PRN nausea and vomiting #20 tabs 05/20/22 [Rx Last Taken 03/17/23] amitriptyline 10 mg tablet 20 mg PO DAILY DEPRESSION 03/19/23 [History Last Taken 03/18/23] hplaln-bvtbxsql-tphtkjl 24,000-76,000-120,000 unit capsule,delayed rel (Creon) 3 cap PO UD PRN CYSTIC FIBROSIS 03/19/23 [History Last Taken 03/18/23] omeprazole 40 mg capsule,delayed release 40 mg PO DAILY ACID REFLUX 03/19/23 [History Last Taken 03/19/23] Allergy/AdvReac Type Severity Reaction Status Date / Time vancomycin Allergy Mild Itching Verified 03/19/23 07:12 Surgical History embolization History of dilatation and curettage (11/2019) History of sinus surgery Social History (Updated 03/19/23 @ 13:[address] Luis Felipe José DO) Smoking Status: Never smoker alcohol intake: never substance use type: does not use Vital Signs Vital Signs Vital Signs: 03/19/23 07:03 03/19/23 07:55 03/19/23 09:10 Temperature 36.5 C L Temperature Source Temporal Pulse Rate 115 H 77 99 Respiratory Rate 22 H 18 18 Blood Pressure 149/103 H 149/89 H 147/93 H Blood Pressure Mean 118 109 111 Pulse Ox 100 99 99 Oxygen Delivery Method Room Air Room Air Room Air 03/19/23 11:04 03/19/23 11:15 03/19/23 11:16 Temperature 36.5 C L 36.5 C L Temperature Source Oral Pulse Rate 99 92 87 Respiratory Rate 18 18 18 Blood Pressure 135/82 H 140/83 H 140/83 H Blood Pressure Mean 99 102 102 Pulse Ox 96 100 98 Oxygen Delivery Method Room Air Room Air Weight Weight: 61.643 kg Body Mass Index (BMI) 23.3 Physical Exam Narrative - Physical Exam General: Alert, Oriented x3, Cooperative HEENT: Atraumatic, PERRLA, EOMI, Normocephalic Oral: Moist Mucosa, No Gingival or Mucosal Lesions/ Ulcerations Neck: Supple, No JVD, Negative Carotid Bruits Lungs: Clear to auscultation, Normal air movement Cardiovascular: Regular rate, Normal S1, Normal S2, No murmurs Abdomen: Bowel Sounds Present, Soft, epigastric tenderness. No rebound., Non- Distended, No Hepato-splenomegaly Extremities: No clubbing, No cyanosis, No edema, Capillary Refill Less than 3 Seconds Skin: No rashes, No breakdown Musculoskeletal: No Tenderness to Palpation of Joints or Extremities Neurological: Neuro grossly intact Psych/Mental Status: Normal Affect, Appropriate Results Lab / Micro Data 03/19/23 08:06 03/19/23 08:06 Labs: Laboratory Results - last 24 hr 03/19/23 07:52: Urine Color Yellow, Urine Clarity Clear, Urine pH 8.0, Ur Specific [place] 1.010, Urine Protein Negative, Urine Glucose (UA) Normal, Urine Ketones Negative, Urine Occult Blood Negative, Urine Nitrite Negative, Urine Bilirubin Negative, Urine Urobilinogen Normal, Ur Leukocyte Esterase Negative, Urine RBC 0 SEEN, Urine WBC 0 SEEN, Ur Squamous Epith Cells 0-5 SEEN, Urine Bacteria 0 SEEN, Urine Mucus 0 SEEN 03/19/23 08:06: WBC 6.7, RBC 4.41, Hgb 12.9, Hct 40.0, MCV 90.7, MCH 29.3, MCHC 32.3, RDW Std Deviation 40.5, RDW Coeff of Shai 12.1, Plt Count 348, MPV 9.1, Immature Gran % (Auto) 0.200, Neut % (Auto) 58.4, Lymph % (Auto) 32.6, [place] % (Auto) 6.2, Eos % (Auto) 1.8, Baso % (Auto) 0.8, Absolute Neuts (auto) 3.9, Absolute Lymphs (auto) 2.17, Nucleated RBC % 0, Sodium 140, Potassium 3.6, Chloride 107, Carbon Dioxide 27.0, Anion Gap 6, BUN 10, Creatinine 0.76, Estim Creat Clear Calc 94.32, Est GFR (MDRD) Af Amer 115, Est GFR (MDRD) Non-Af 95, BUN/Creatinine Ratio 13.1, Glucose 105, Lactic Acid 1.7, Calcium 9.7, Total Bilirubin 0.50, AST 9 L, ALT 16, Alkaline Phosphatase 100, Total Protein 7.7, Albumin 4.1, Globulin 3.6, Albumin/Globulin Ratio 1.1, Lipase < 10 L, Serum , Qual NEGATIVE Radiology Impression Abdomen/Pelvis CT 03/19/23 09:11 IMPRESSION: Evidence of a prior hiatal hernia repair. Enlarged uterus. Electronically Signed: Josue Flores MD at 10:00 EST , Assessment & Plan Assessment/Plan (1) Intractable abdominal pain: PLAN: Suspect due to pancreatitis. Work-up here was unremarkable with abnormal labs and CAT scan. Supportive management at this time with antiemetics, pain control and IV fluids. Patient be on clear liquid diet. Patient be monitored however if she does continue to worsen then may need to consider transfer to [facility]. Of note, patient stated that she is going to reach out to her doctors at [facility] to see what their recommendations were. Patient is going to be admitted here. PLAN: Plan Chronic conditions * Cystic fibrosis: Not otherwise specified. Patient has apparently no pulmonary involvement but does have a history of pancreatic insufficiency and is on pancreatic enzymes for it. Follow-up with her CF specialist at [facility] VTE prophylaxis: Low risk and not indicated at this time. Charges/Coding Visit Charges Inpatient E&M: 33827 Init Hosp L2
[2023-03-19] MEDS: 0.9% Saline Lock 10 ML Syringe IV (14:32)
[2023-03-19] MEDS: proCHLORPERazine 10 MG/2 ML Vial 5 MG IV (14:32)
[2023-03-19] MEDS: Ketorolac 15 MG/ML Vial IV (14:32)
--- NOTE | 2023-03-19 15:24 | NURSING ---
pt states that she just heard from her GI MD down at [facility] and he would like pt transfered down there. and provided said nurse with following information: Dr. So @ [facility] transfer line number [phone] his office number is [phone]
--- NOTE | 2023-03-19 18:30 | NURSING ---
Dr. José updated have bed assignment from [facility]- 8th floor- room 810. Accepted by Dr. Eliseo COUCH speciality. number to call report as [phone]. order obtained for discharge to acute hospital. primary RN updated.
[2023-03-19] MEDS: Lubiprostone 24 MCG Capsule PO (20:11)
[2023-03-19] MEDS: Amitriptyline 10 MG Tablet 20 MG PO (20:21)
--- NOTE | 2023-03-20 06:57 | PCM.DC.SUM ---
Providers Date of Admission: 03/19/23 Primary Care Physician: No Primary Care Phys Reason For Visit: ABDOMINAL PAIN, CYSTIC FIBROSIS Diagnosis Discharge Diagnosis (1) Intractable abdominal pain: Status: Acute Code(s): R10.9 - Unspecified abdominal pain Plan: Suspect due to pancreatitis. Work-up here was unremarkable with abnormal labs and CAT scan. Supportive management at this time with antiemetics, pain control and IV fluids. Patient be on clear liquid diet. Patient be monitored however if she does continue to worsen then may need to consider transfer to [facility]. Of note, patient stated that she is going to reach out to her doctors at [facility] to see what their recommendations were. Patient is going to be admitted here. Plan Chronic conditions Cystic fibrosis: Not otherwise specified. Patient has apparently no pulmonary involvement but does have a history of pancreatic insufficiency and is on pancreatic enzymes for it. Follow-up with her CF specialist at [facility] VTE prophylaxis: Low risk and not indicated at this time. Medications at Discharge Home Medications albuterol sulfate 90 mcg/actuation aerosol inhaler 1 puff inhalation BID PRN SORTNESS OF BREATH/WHEEZING 07/31/16 elexacaftor 100 mg-tezacaf 50mg-ivacaf 75mg(d)/ivacaf 150mg(n) tablets 2 ea PO DAILY CYSTIC FIBROSIS 05/20/20 yulcrj-osxscgfu-wjainvq 24,000-76,000-120,000 unit capsule,delayed rel 4 capsule PO TIDCM CYSTIC FIBROSIS 09/04/20 fluticasone propionate 50 mcg/actuation nasal spray,suspension 1 spray intranasal DAILY NASAL CONGESTION 05/20/22 lubiprostone 24 mcg capsule 24 mcg PO BID CONSTIPATION 05/20/22 promethazine 25 mg tablet 25 mg PO TID PRN nausea and vomiting #20 tabs 05/20/22 amitriptyline 10 mg tablet 20 mg PO DAILY DEPRESSION 03/19/23 avxegv-eobeaivv-srkbdup 24,000-76,000-120,000 unit capsule,delayed rel (Creon) 3 cap PO UD PRN CYSTIC FIBROSIS 03/19/23 omeprazole 40 mg capsule,delayed release 40 mg PO DAILY ACID REFLUX 03/19/23 Hospital Course Operations None Procedures None Summary of Care Provided Minutes Spent on Discharge: 80 Hospital Course: Patient presents with a 1 day history of abdominal pain. Days prior, patient had similar abdominal pain but it did resolve after about 5 hours., This abdominal pain did not. Patient has had similar abdominal pain that is been evaluated at the [facility]. Patient has known cystic fibrosis. Patient's work-up in the emergency room was completely unremarkable but still was having abdominal pain. Patient was able to get a hold of her branch account manager at [facility], Dr. So, and he recommended transfer as patient may potentially require endoscopy. I attempted to get a hold of him through the office but that there is no direct line so I did reach out to the transfer line and the patient was excepted and transferred to the [facility]. Is unclear if patient did have some underlying pancreatitis but all her labs were unremarkable. Of note, I informed the emergency room physician that the patient be reaching out to have state to see if if she would be transferred. I was informed that the patient had talked with them and the patient was subsequent mated where that actually was not the case. Patient was treated supportively on the floor and remained stable. Weight / BMI Weight Weight: 61.779 kg Body Mass Index (BMI) 23.3 ABG / Lab / Microbiology Data 03/19/23 08:06 03/19/23 08:06 Laboratory: Laboratory Results - last 24 hr 03/19/23 07:52: Urine Color Yellow, Urine Clarity Clear, Urine pH 8.0, Ur Specific Telephone 1.010, Urine Protein Negative, Urine Glucose (UA) Normal, Urine Ketones Negative, Urine Occult Blood Negative, Urine Nitrite Negative, Urine Bilirubin Negative, Urine Urobilinogen Normal, Ur Leukocyte Esterase Negative, Urine RBC 0 SEEN, Urine WBC 0 SEEN, Ur Squamous Epith Cells 0-5 SEEN, Urine Bacteria 0 SEEN, Urine Mucus 0 SEEN 03/19/23 08:06: WBC 6.7, RBC 4.41, Hgb 12.9, Hct 40.0, MCV 90.7, MCH 29.3, MCHC 32.3, RDW Std Deviation 40.5, RDW Coeff of Shai 12.1, Plt Count 348, MPV 9.1, Immature Gran % (Auto) 0.200, Neut % (Auto) 58.4, Lymph % (Auto) 32.6, Crenshaw % (Auto) 6.2, Eos % (Auto) 1.8, Baso % (Auto) 0.8, Absolute Neuts (auto) 3.9, Absolute Lymphs (auto) 2.17, Nucleated RBC % 0, Sodium 140, Potassium 3.6, Chloride 107, Carbon Dioxide 27.0, Anion Gap 6, BUN 10, Creatinine 0.76, Estim Creat Clear Calc 94.32, Est GFR (MDRD) Af Amer 115, Est GFR (MDRD) Non-Af 95, BUN/Creatinine Ratio 13.1, Glucose 105, Lactic Acid 1.7, Calcium 9.7, Total Bilirubin 0.50, AST 9 L, ALT 16, Alkaline Phosphatase 100, Total Protein 7.7, Albumin 4.1, Globulin 3.6, Albumin/Globulin Ratio 1.1, Lipase < 10 L, Serum , Qual NEGATIVE Radiography Diagnostic Testing: Radiology Impression Abdomen/Pelvis CT 03/19/23 09:11 IMPRESSION: Evidence of a prior hiatal hernia repair. Enlarged uterus. Electronically Signed: Josue Flores MD at 10:00 EST Reading Location ID and State: [address] [place] [address] , Service support , Meaningful Use Info Meaningful Use Diagnoses (Choose all that apply): None applicable Discharge Plan Admission Admit Date/Time: 03/19/23 13:20 Primary Reason for Your Visit: Abdominal pain Attending Provider: Luis Felipe José Primary Care Provider: Care PhysicianAshley Primary Discharge Orders/Prescriptions Prescriptions: No Action albuterol sulfate 1 INHALER inhaler 1 puff INHALATION BID PRN (Reason: SORTNESS OF BREATH/WHEEZING ) aoxfrhiuehc-ufvlelspfz-wbvhieb 100-50-75 mg(d) /150 mg (n) tablets, sequential 2 ea PO DAILY zxbtmt-lzxpgikl-wonkamu 1 CAPSULE capsule 4 capsule PO TIDCM Rx Instructions: TAKE 4 CAPSULES BY MOUTH WITH EACH MEAL. (3 CAPSULES W/SNACKS 4 CAPSULES W/MEALS) fluticasone propionate 50 mcg/actuation spray,suspension 1 spray INTRANASAL DAILY lubiprostone 24 mcg capsule 24 mcg PO BID promethazine 25 mg tablet 25 mg PO TID PRN (Reason: nausea and vomiting) Qty: 20 0RF omeprazole 40 mg capsule,delayed release(DR/EC) 40 mg PO DAILY amitriptyline 10 mg tablet 20 mg PO DAILY Creon 24,000-76,000 -120,000 unit capsule,delayed release(DR/EC) 3 cap PO UD PRN (Reason: CYSTIC FIBROSIS) Rx Instructions: TAKE 3 CAPSULES BY MOUTH WITH SNACKS. (3 CAPSULES W/SNACKS 4 CAPSULES W/MEALS) Referrals / Follow Up: Care Physician,No Primary [Primary Care Provider] - Disposition Disposition (needs filled in before D/C Order can be placed): Acute Care Hospital Charges/Coding Visit Charges OBSV E&M: 18460 Observ/hosp same date L3
== END 2023-03-19 20:45 | disposition short-term general hospital (02) ==
LOC: ED 10:52 → MS3 13:27
PROVIDERS: Emergency Provider Emergency Medicine
DX: R10.9 Unspecified abdominal pain (principal); E84.9 Cystic fibrosis, unspecified; K21.9 Gastro-esophageal reflux disease without esophagitis; Z79.899 Other long term (current) drug therapy; Z79.51 Long term (current) use of inhaled steroids; F32.A Depression, unspecified
CPT/HCPCS: 74176; 80053; 81001; 83605; 83690; 84703; 85025; 96361; 96365; 96375; 96376; 99221; 99285; J7030; A4216; G0378; J2405; J3490

== ENCOUNTER 2023-04-03 19:42 | Emergency (ER) | payer OTHER, SELFPAY ==
[2023-04-03 19:43] VITALS: BP 130/98; PULSE 130; RESP 20; TEMP 36.7; O2SAT 100; BMI 23.6
--- NOTE | 2023-04-03 21:12 | EDS_ITS ---
HPI History of Present Illness Chief Complaint: Cough Detail of Chief Complaint: Cough with hemoptysis. Informant: patient Onset/Context/Timing Onset: Today Context: Sudden Onset Timing: Intermittent Quality: Epistaxis left and blood noted with coughing. Location: Nose and respiratory Current Severity: Mild Maximum Severity: Mild Worsened by: Unknown Relieved by: Nothing Associated Symptoms Associated Symptoms: Productive cough. History of CF Narrative Narrative: Patient is a 27-year-old female with history of cystic fibrosis. She had spontaneous nosebleed. She did have a cough this morning and called her CF team. They prescribed her antibiotics. She presents because of blood with her sputum. She does have history of hemoptysis due to cystic fibrosis. She denies fever, chills night sweats. She denies headache, visual, ocular auditory symptoms. She denies chest discomfort. She denies nausea, vomiting diarrhea. She denies abdominal pain. She denies history of VTE. She denies leg pain, swelling or discoloration. She has no risk factors for VTE. Prior similar symptoms: Yes (Due to cystic fibrosis) Recent Illness/Hospitalization: No PFSH [facility] Medical History Bronchiectasis Cystic fibrosis Depression AIYANA (distal intestinal obstruction syndrome) Duodenal ulcer Feeding by G-tube GDM (gestational diabetes mellitus) H/O gastroesophageal reflux (GERD) Hx of cystic fibrosis Missed Sinusitis Subchorionic hemorrhage in first trimester Syncope (05/01/20) Home Medications albuterol sulfate 90 mcg/actuation aerosol inhaler 1 puff inhalation BID PRN SORTNESS OF BREATH/WHEEZING 07/31/16 [History Last Taken 11/11/19] elexacaftor 100 mg-tezacaf 50mg-ivacaf 75mg(d)/ivacaf 150mg(n) tablets 2 ea PO DAILY CYSTIC FIBROSIS 05/20/20 [History Last Taken 03/18/23] hfqevy-faokmmpi-nkynxtq 24,000-76,000-120,000 unit capsule,delayed rel 4 capsule PO TIDCM CYSTIC FIBROSIS 09/04/20 [History Last Taken 03/18/23] fluticasone propionate 50 mcg/actuation nasal spray,suspension 1 spray intranasal DAILY NASAL CONGESTION 05/20/22 [History Last Taken 03/18/23] lubiprostone 24 mcg capsule 24 mcg PO BID CONSTIPATION 05/20/22 [History Last Taken 03/18/23] promethazine 25 mg tablet 25 mg PO TID PRN nausea and vomiting #20 tabs 05/20/22 [Rx Last Taken 03/17/23] amitriptyline 10 mg tablet 20 mg PO DAILY DEPRESSION 03/19/23 [History Last Taken 03/18/23] tyylck-emtdbqyr-jxhenew 24,000-76,000-120,000 unit capsule,delayed rel (Creon) 3 cap PO UD PRN CYSTIC FIBROSIS 03/19/23 [History Last Taken 03/18/23] omeprazole 40 mg capsule,delayed release 40 mg PO DAILY ACID REFLUX 03/19/23 [History Last Taken 03/19/23] Allergy/AdvReac Type Severity Reaction Status Date / Time vancomycin Allergy Mild Itching Verified 03/19/23 07:12 Surgical History embolization History of dilatation and curettage (11/2019) History of sinus surgery Social History Smoking Status: Never smoker alcohol intake: never substance use type: does not use ROS ROS ED Constitutional Constitutional ED: Denies chills, fever(s), subjective, sweats or weight loss Eyes Eyes: Denies blurry vision, change in vision or diplopia ENT ENT ED: Reports other Details: Epistaxis left ; Denies ear pain, rhinorrhea or sore throat Cardiovascular Cardiovascular: Denies chest pain, orthopnea, palpitations or paroxysmal nocturnal dyspnea Respiratory/Chest Respiratory/Chest: Reports cough, sputum and other Details: Urine is essentially clear and now blood-tinged ; Denies dyspnea, dyspnea on exertion, orthopnea or paroxysmal nocturnal dyspnea Gastrointestinal Gastrointestinal: Denies abdominal pain, nausea or vomiting Genitourinary Genitourinary ED: Denies dysuria, hematuria or urinary frequency Musculoskeletal Musculoskeletal: Denies arthralgias or myalgias Integumentary Denies rash Neurologic Neurologic: Denies headache(s) Psychiatric Psychiatric: Denies anxiety or depression Endocrine Endocrinology: Reports cold intolerance and heat intolerance Hematologic/Lymphatic Hematologic/Lymphatic: Reports systems reviewed and no addt'l complaints, except as documented EXAM Physical Exam Const Vital Signs: 04/03/23 19:43 Temperature 98.1 F Temperature Source Temporal Pulse Rate 130 H Respiratory Rate 20 H Blood Pressure 130/98 H Blood Pressure Mean 108 Pulse Ox 100 Oxygen Delivery Method Room Air Positive well nourished; Negative for well developed General Appearance ED: NAD and pallor; Negative for well developed, cyanotic or diaphoretic HEENT Reports moist mucous membranes HEENT Narrative: There is source of bleeding over Brenda box plexus on the left. Posterior pharynx is unremarkable. There is evidence of old blood noted in the posterior pharynx. Ears normal. TMs normal. Eyes PERRL and EOMs intact bilaterally General Eye ED: Negative for pale conjunctiva or scleral icterus Neck no lymphadenopathy, supple and no JVD Chest Wall inspection of chest normal and palpation of chest normal Resp normal respiratory effort and clear to auscultation bilaterally Cardio regular rhythm, S1 normal heart sound, S2 normal heart sound and no murmurs Rate: tachycardic GI normal to inspection, nondistended, normoactive bowel sounds, non-tender and non-distended; Negative for hepatosplenomegaly or no masses Extremity normal to inspection Extremity Narrative: There is no asymmetry, swelling, discoloration, leg vein distention, palpable cords or tenderness along the distribution of the deep venous system. Neuro oriented x3, CN's II-XII intact bilaterally and no sensory deficits noted Sensorium / Orientation: alert Psych mental status grossly normal Skin no rashes or lesions noted, no wounds and skin turgor normal General Skin Exam: pallor; Negative for jaundice MDM MDM MDM Narrative Medical decision making narrative: Plan is to anesthetize the left side and cauterized with silver nitrate. Chest x-ray is obtained to evaluate for pneumonia. Suspect the blood is due to the epistaxis. Radiography Chest X-Ray - ED: 2 View and Read by ED Physician (Size normal. Lung parenchyma normal. Perihilar region normal. Osseous structures unremarkable. Plan reviewed interpreted by me at [id number]) Procedures Other Procedures Procedure(s): This was anesthetized using nura solution. Silver nitrate to cauterize around the bleeding site. Patient tolerated procedure. She was discharged to home. Discharge Plan Triage Chief Complaint: Cough Other Complaint: GI Bleed ED Provider: Valdo Fernandez Dx/Rx/DC Orders Clinical Impression: Cough with hemoptysis, Acute anterior epistaxis, Hx of cystic fibrosis Instructions: ED Epistaxis (Adult), ED Hemoptysis Prescriptions: No Action albuterol sulfate 1 INHALER inhaler 1 puff INHALATION BID PRN (Reason: SORTNESS OF BREATH/WHEEZING ) cconxhyrdmv-lwgmjgtciz-ghcyrdq 100-50-75 mg(d) /150 mg (n) tablets, sequential 2 ea PO DAILY eljacn-hrahtnbg-fmqaexj 1 CAPSULE capsule 4 capsule PO TIDCM Rx Instructions: TAKE 4 CAPSULES BY MOUTH WITH EACH MEAL. (3 CAPSULES W/SNACKS 4 CAPSULES W/MEALS) fluticasone propionate 50 mcg/actuation spray,suspension 1 spray INTRANASAL DAILY lubiprostone 24 mcg capsule 24 mcg PO BID promethazine 25 mg tablet 25 mg PO TID PRN (Reason: nausea and vomiting) Qty: 20 0RF omeprazole 40 mg capsule,delayed release(DR/EC) 40 mg PO DAILY amitriptyline 10 mg tablet 20 mg PO DAILY Creon 24,000-76,000 -120,000 unit capsule,delayed release(DR/EC) 3 cap PO UD PRN (Reason: CYSTIC FIBROSIS) Rx Instructions: TAKE 3 CAPSULES BY MOUTH WITH SNACKS. (3 CAPSULES W/SNACKS 4 CAPSULES W/MEALS) Primary Care Provider: DONALD LOPEZ Referrals: DONALD LOPEZ [Other] - 3-5 Days if not improving Disposition Disposition: Home, Self Care
--- NOTE | 2023-04-03 22:49 | RAD_ITS ---
STUDY: X-RAY CHEST REASON FOR EXAM: Female, 27 years old. Hemoptysis with cough, history of CF TECHNIQUE: Frontal and lateral views of the chest. COMPARISON: March 01, 2017 FINDINGS: There are mild fibrotic densities in the right mid and upper lung. There is no demonstrated pleural abnormality. Normal size heart. There are calcified left hilar lymph nodes. Normal visualized pulmonary arteries. Normal visualized aortic arch and descending thoracic aorta. Normal visualized thoracic spine. Normal visualized ribs, clavicles, and shoulders. There is no demonstrated abnormality of the visualized soft tissue structures of the upper abdomen. RAD/Chest PA and Lateral IMPRESSION: Fibrotic densities. No focal infiltrate. Electronically Signed: Felton Vang MD at 23:22 [facility] ,
[2023-04-03] MEDS: Silver Nitrate (BKC) 4 EACH TOPICAL (23:38)
[2023-04-03] MEDS: Mixture 30 ML Bottle 20 ML TOPICAL (23:38)
[2023-04-03 23:41] VITALS: PULSE 102; RESP 18; O2SAT 97
== END 2023-04-03 23:42 | disposition home or self-care (01) ==
PROVIDERS: Emergency Provider Emergency Medicine; Visit Provider Emergency Medicine
DX: R05.9 Cough, unspecified (principal); R04.2 Hemoptysis; R04.0 Epistaxis
CPT/HCPCS: 71046; 99283

== ENCOUNTER 2023-07-06 08:22 | Emergency (ER) | payer OTHER, SELFPAY ==
[2023-07-06 08:23] VITALS: BP 127/86; PULSE 147; RESP 18; TEMP 36.6; O2SAT 100; BMI 24.0
--- NOTE | 2023-07-06 08:56 | CT_ITS ---
EXAM: CT HEAD WITHOUT INTRAVENOUS CONTRAST CLINICAL INDICATION: pain TECHNIQUE: Multiple axial images were obtained of the head without intravenous contrast. This CT exam was performed using one or more of the following dose reduction techniques: automated exposure control, adjustment of the mA and/or kV according to patient size, and/or use of iterative reconstruction technique. RADIATION DOSE: CTDIvol = 44.99 mGy, DLP = 748.30 mGy-cm COMPARISON: No relevant prior studies available. FINDINGS: BRAIN AND EXTRA-AXIAL SPACES: Unremarkable. No intra- or extra-axial hemorrhage. No evidence of acute infarct. No intracranial mass or mass effect. There is preservation of the whatley/white matter interface. Posterior fossa structures are unremarkable. Ventricles are appropriate for age. No hydrocephalus. Basal cisterns are patent. BONES/JOINTS: Unremarkable. No discrete lytic or blastic abnormalities. SINUSES: Unremarkable as visualized. Clear. MASTOID AIR CELLS: Unremarkable. Clear. ORBITS: Visualized globes, extraocular muscles, optic nerves and retrobulbar fat appear unremarkable. CT/Brain/Head without Contrast IMPRESSION: Negative head/brain CT without intravenous contrast. Electronically Signed: Angelo Leonard MD at 9:46 EST ,
--- NOTE | 2023-07-06 09:02 | EDS_ITS ---
HPI History of Present Illness Chief Complaint: Headache Narrative Narrative: 27-year-old female who denies significant past medical history except for cystic fibrosis presents with pain on the left side of her head, described more as a pressure sensation, over the last 4 days. There is 1 spot on her scalp more towards her mandaeism but more posterior. She denies any fevers or chills, no nausea or vomiting, no other symptoms. She might have slight photophobia when she looked at her phone, and yesterday had maybe a brief episode of paresthesia of her right arm that was fleeting. No difficulty with speech, no exacerbating or alleviating factors. She tried ibuprofen without relief. It is only 1 spot on her left parietal scalp that is oval-shaped. No neck pain. [facility] Medical History Bronchiectasis Cystic fibrosis Depression AIYANA (distal intestinal obstruction syndrome) Duodenal ulcer Feeding by G-tube GDM (gestational diabetes mellitus) H/O gastroesophageal reflux (GERD) Hx of cystic fibrosis Missed Sinusitis Subchorionic hemorrhage in first trimester Syncope (05/01/20) Home Medications albuterol sulfate 90 mcg/actuation aerosol inhaler 1 puff inhalation BID PRN SORTNESS OF BREATH/WHEEZING 07/31/16 [History Last Taken 11/11/19] elexacaftor 100 mg-tezacaf 50mg-ivacaf 75mg(d)/ivacaf 150mg(n) tablets 2 ea PO DAILY CYSTIC FIBROSIS 05/20/20 [History Last Taken 03/18/23] igksot-nvgxiviu-afcapyx 24,000-76,000-120,000 unit capsule,delayed rel 4 capsule PO TIDCM CYSTIC FIBROSIS 09/04/20 [History Last Taken 03/18/23] fluticasone propionate 50 mcg/actuation nasal spray,suspension 1 spray intranasal DAILY NASAL CONGESTION 05/20/22 [History Last Taken 03/18/23] lubiprostone 24 mcg capsule 24 mcg PO BID CONSTIPATION 05/20/22 [History Last Taken 03/18/23] promethazine 25 mg tablet 25 mg PO TID PRN nausea and vomiting #20 tabs 05/20/22 [Rx Last Taken 03/17/23] amitriptyline 10 mg tablet 20 mg PO DAILY DEPRESSION 03/19/23 [History Last Taken 03/18/23] bislet-hipiscst-zlkppab 24,000-76,000-120,000 unit capsule,delayed rel (Creon) 3 cap PO UD PRN CYSTIC FIBROSIS 03/19/23 [History Last Taken 03/18/23] omeprazole 40 mg capsule,delayed release 40 mg PO DAILY ACID REFLUX 03/19/23 [History Last Taken 03/19/23] Allergy/AdvReac Type Severity Reaction Status Date / Time vancomycin Allergy Mild Itching Verified 07/06/23 08:22 Surgical History embolization History of dilatation and curettage (11/2019) History of sinus surgery Social History Smoking Status: Never smoker alcohol intake: never substance use type: does not use ROS ROS ED ROS Narrative Constitutional: No fever, no chills. HEENT: No sore throat. No neck pain. No loss of vision. No rhinorrhea. Cardiovascular: No chest pain. No palpitations. No pedal edema. Respiratory: No cough, no shortness of breath. Abdominal: No abdominal pain. No nausea. No vomiting. Genitourinary: No dysuria. No hematuria. Musculoskeletal: No myalgias. No arthralgias. Neurologic: Left scalp pain/pressure/headaches. No dizziness. No lightheadedness. Paresthesia of right arm yesterday. Resolved. Skin: No rash. No change in color. Psychiatric: No depression. No anxiety. EXAM Physical Exam Narrative Exam Narrative: Afebrile. Vital signs noted. HEENT: Normocephalic. Atraumatic. PERRL, EOMI. Neck soft and supple. No point tenderness or step off. No temporal pulse deficit. No occipital tenderness. No mastoid tenderness. Cardiovascular: Regular rate and rhythm. No murmurs, rubs, or gallops appreciated. Respiratory: No tachypnea. Lungs clear to auscultation bilaterally. Gastrointestinal: Abdomen soft, nontender, with normoactive bowel sounds. No rebound or guarding. Neurological: Awake. Alert. Nonfocal, nonlateralizing. Skin: No rash. Normal color. No pallor. Musculoskeletal: No pedal edema. Full range of motion extremities. Const Vital Signs: 07/06/23 08:23 Temperature 97.9 F Temperature Source Temporal Pulse Rate 147 H Respiratory Rate 18 Blood Pressure 127/86 H Blood Pressure Mean 99 Pulse Ox 100 Oxygen Delivery Method Room Air MDM MDM MDM Narrative Medical decision making narrative: Patient states this is different than any other headache that she has had in the past. In the differential is atypical migraine versus intracranial mass versus temporal arteritis. Her pressure sensation is a little bit further in the pa rietal area so I have low suspicion for temporal arteritis. Additionally, she has not had any vision loss. It may be more of a scalp neuropathy as well. I do not feel laboratory work is indicated. CT of the brain was obtained and she was given Reglan normal saline and Benadryl. CT of the brain was obtained I reviewed the radiology report which shows no evidence of an acute process, no mass. Upon repeat examination, she was looking at her cellular telephone and states that she feels no change. At this point in time, I feel her medical screening exam is negative and that she can be discha rged to follow-up with her primary care provider. I am uncertain to the cause of her left-sided head pressure, but do not feel that she requires observation or admission at this time. I do not feel laboratory work is indicated either. Disposition is discharged home in stable condition. History & Record Review Additional record(s) reviewed:: Prior ED visit Radiography Diagnostic Testing: Clinical Impression(s) from Imaging Studies Brain CT 07/06/23 08:56 IMPRESSION: Negative head/brain CT without intravenous contrast. Electronically Signed: Angelo Leonard MD at 9:46 EST , Discharge Plan Triage Chief Complaint: Headache ED Provider: Angelo Pressley Dx/Rx/DC Orders Clinical Impression: Pressure in head, Headache Instructions: ED Pain, Acute, Uncertain Cause Prescriptions: No Action albuterol sulfate 1 INHALER inhaler 1 puff INHALATION BID PRN (Reason: SORTNESS OF BREATH/WHEEZING ) sybmkqzxybh-jnatyopcpv-rqxifpx 100-50-75 mg(d) /150 mg (n) tablets, sequential 2 ea PO DAILY pflefq-exklrpzq-ftjbmzb 1 CAPSULE capsule 4 capsule PO TIDCM Rx Instructions: TAKE 4 CAPSULES BY MOUTH WITH EACH MEAL. (3 CAPSULES W/SNACKS 4 CAPSULES W/MEALS) fluticasone propionate 50 mcg/actuation spray,suspension 1 spray INTRANASAL DAILY lubiprostone 24 mcg capsule 24 mcg PO BID promethazine 25 mg tablet 25 mg PO TID PRN (Reason: nausea and vomiting) Qty: 20 0RF omeprazole 40 mg capsule,delayed release(DR/EC) 40 mg PO DAILY amitriptyline 10 mg tablet 20 mg PO DAILY Creon 24,000-76,000 -120,000 unit capsule,delayed release(DR/EC) 3 cap PO UD PRN (Reason: CYSTIC FIBROSIS) Rx Instructions: TAKE 3 CAPSULES BY MOUTH WITH SNACKS. (3 CAPSULES W/SNACKS 4 CAPSULES W/MEALS) Primary Care Provider: DONALD LOPEZ Referrals: DONALD LOPEZ [Other] Activity Restrictions/Additional Instructions: Follow-up with your primary care provider in the next 3 to 5 days. Continue tqxx-rjn-uhztnon pain medications as needed. Disposition Disposition: Home, Self Care
--- OUTSIDE RECORDS SUMMARY | 2023-07-06 09:03 | XMS RPT_ITS ---
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 Name Role Phone Reba Mcclure Attending Unavailable CORBY MICHAEL Primary Care Unavailable SELF, SELF Referring Unavailable BRY LOVE Attending Unavailable JORGITO DELGADO Attending Unavailable LETICIA BUENO Referring Unavailable CONSULT, GASTROENTEROLOGY Consulting LILIAN Tejeda Admitting Unavailable SELF, SELF Referring Unavailable BRY LOVE Attending Unavailable JORGITO DELGADO Referring Unavailable KATE RODRÍGUEZ Attending Unavailable SELF, SELF Referring Unavailable BRY LOVE Attending Unavailable SELF, SELF Referring Unavailable BRY LOVE Attending Unavailable KAREN DIAZ Attending Unavailable DEJUAN BUTTS Primary Care Unavailable PROBLEMS DATE TYPE CONDITION / CODE ATTENDING STATUS [facility] 06/21/2023 Admitting diagnosis Cystic fibrosis with other intestinal manifestations / E84.19(ICD-10) BRY LOVE Active [facility] 06/21/2023 Admitting diagnosis Heartburn / R12(ICD-10) BRY LOVE Active [facility] 04/26/2023 Admitting diagnosis Follow-up / 145() BRY LOVE Active [facility] 04/19/2023 Admitting diagnosis Establish Care / 42() KATE RODRÍGUEZ Cristel Active [facility] 03/20/2023 Admitting diagnosis Generalized abdominal pain / R10.84(ICD-10) JORGITO DELGADO Active [facility] 03/08/2023 Admitting diagnosis Other specified functional intestinal disorders / K59.89(ICD-10) BRY LOVE Active [facility] 03/08/2023 Admitting diagnosis Functional dyspepsia / K30(ICD-10) BRY LOVE Active [facility] 03/08/2023 Admitting diagnosis Mixed irritable bowel syndrome / K58.2(ICD-10) BRY LOVE Active [facility] 12/25/2022 Unknown Cystic Fibrosis / 206() Reba Mcclure Active [facility] 05/17/2022 Unknown Cystic fibrosis, unspecified / E84.9(ICD-10) Reba Mcclure Active [facility] 10/17/2022 Active Bilateral low ba ck pain without sciatica, unspecified chronicity / M54.50(ICD-10) KAREN DIAZ Active [facility] 10/17/2022 Active Leukocytes in ur ine / R82.998(ICD-10) KAREN DIAZ Active [facility] PROCEDURES No Procedure Records Found RESULTS 5 HIAA QUANT,24 HR URINE Collected: 01/2023 11:09 AM Status: F Source: [facility] REPOSITORY Order Comment: Preservative, acetic acid, obtained from lab TYPE CODE TESTS RESULT OUT OF RANGE REFERENCE UNITS LAB 1784 INTERVAL: 24 h LAB 1783 VOLUME: 3064 mL Result Comment: ADDITIONAL INFORMATION Liquid Chromatography-Tandem Mass Spectrometry (LC-MS/MS). Values obtained from different assay methods or kits may be different and cannot be used interchangeably. The results cannot be interpreted as absolute evidence for the presence or absence of malignant disease. This test was developed and its performance characteristics determined by [facility] in a manner consistent with CLIA requirements. This test has not been cleared or approved by the U.S. Food and Drug Administration. Test Performed by: [facility] - [address] [address] Transferrer: Loyd Lujan M.D. Ph.D.; CLIA# [id number] LAB [id number] 5-HIAA, URINE 24 HR 4.9 <=6.5 mg/24 h Performed By: #### YHIAA ### # [facility] (DEFAULT) [address] [place] [address] METANEPHRINES,24HR URINE Collected: 01/2023 11:08 AM Status: F Source: [facility] REPOSITORY Order Comment: Preservative, acetic acid, obtained from lab TYPE CODE TESTS RESULT OUT OF RANGE REFERENCE UNITS LAB 1646 METANEPHRI NE, URINE 132 mcg/24 h Result Comment: REFERENCE VALUE 30-180 (Normotensive) <400 (Hypertensive) LAB 1647 NORMETANEP HRINE, URINE 251 mcg/24 h Result Comment: REFERENCE VALUE 103-390 (Normotensive) <900 (Hypertensive) LAB 1648 METANEPHRI ELIA, TOTAL, URINE 383 mcg/24 h Result Comment: REFERENCE VALUE 142-510 (Normotensive) <1300 (Hypertensive) LAB 1784 INTERVAL: 24 h LAB 1783 VOLUME: 3064 mL Result Comment: ADDITIONAL INFORMATION This test was developed and its performance characteristics determined by [facility] in a manner consistent with CLIA requirements. This test has not been cleared or approved by the U.S. Food and Drug Administration. Test Performed by: [facility] - [facility] [address] [place] [address] Transferrer: Loyd Lujan M.D. Ph.D.; CLIA# [id number] LAB 1649 METANEPHRI ELIA, FRACT, 24H URINE DNR Performed By: #### YMETN ### # [facility] (DEFAULT) [address] [place] [address] SURG PATH REQUEST Collected: 8:46 AM Status: F Source: [facility] REPOSITORY TYPE CODE TESTS RESULT OUT OF RANGE REFERENCE UNITS LAB [id number] Case Report Result Comment: Surgical Pat hology Report Case: [id number] Authorizing Provider: Hugo Fischer MD Collected: 03/21/2023 08:46 AM Ordering Location: [facility] Received: 03/21/2023 11:22 AM Pathologist: Palma Gaines MD Specimens: A) - TISSUE BIOPSY, duodenal bx, rule out celiac B) - TISSUE BIOPSY, stomach bx, rule out hp C) - TISSUE BIOPSY, gastric polyps D) - TISSUE BIOPSY, lower esophageal bx, rule out eoe E) - TISSUE BIOPSY, upper esophageal bx, rule out eoe LAB [id number] Clinical History Preop: Rule out celiac. Rule out HP. Rule out EoE. Medical History: Cystic fibrosis. Gastroesophageal reflux disease. Polyp, nasal sinus. LAB [id number] Pathologic Diagnosis Result Comment: A. Small int estine, duodenum, biopsy: Duodenal gastric heterotopia and peptic-type injury Intact villous architecture B. Stomach, biopsy: Reactive / Chemical gastropathy No Helicobacter on H&E-stained sections C. Stomach, polyps, biopsy: Fundic gland polyp with prolapse-type change, and dilated glands with inspissated secretion No Helicobacter on H&E-stained sections D. Esophagus, lower, biopsy: No significant pathologic change No increased intraepithelial eosinophils E. Esophagus, upper, biopsy: No significant pathologic change No increased intraepithelial eosinophils [id number] Diagnosis Comments LAB [id number] Microscopic Description A microscopic examination was performed. LAB [id number] Gross Description Result Comment: The specimen s are received in five properly labeled containers with the patient's name and accession number. A. The specimen is designated duodenal BX, rule out celiac and consists of four fragments of parada-pink soft tissue, from 0.4 up to 0.5 cm in greatest dimension. TE 1 B. The specimen is designated stomach BX, rule out HP and consists of three fragments of parada-pink soft tissue, from 0.3 up to 0.7 cm in greatest dimension. TE 1 C. The specimen is designated gastric polyps and consists of four fragments of parada-pink soft tissue, from 0.3 up to 0.9 cm in greatest dimension. Largest fragment measures 0.9 x 0.7 x 0.7 cm. Presumed margin of resection is inked black and specimen is bisected to reveal parada-pink, smooth cut surfaces. TE 2 Summary of Cassettes: C1, bisected large tissue fragment; C2, smaller tissue fragments D. The specimen is designated lower esophageal BX, rule out EoE and consists of four fragments of parada-pink soft tissue, from 0.3 up to 0.5 cm in greatest dimension. TE 1 E. The specimen is designated upper esophageal BX, rule out EoE and consists of four fragments of parada-pink soft tissue, from 0.3 up to 0.5 cm in greatest dimension. TE 1 Lab Use Only: JobID [id number] Grosser for this case was: Edilberto Constantino For Immediate Release [facility] Yes Performed By: #### SURGP ### # [facility] (DEFAULT) [address] [address] HCG QUALITATIVE, URINE Collected: 03/21 7:08 AM Status: F Source: [facility] REPOSITORY TYPE CODE TESTS RESULT OUT OF RANGE REFERENCE UNITS LAB [id number] Beta HCG (Qual), Urine Negative Negative Performed By: #### UHCG #### [facility] (DEFAULT) [address] [address] CBC,PLATELETS Collected: 03/21/2023 4:16 AM Status: F Source: [facility] REPOSITORY TYPE CODE TESTS RESULT OUT OF RANGE REFERENCE UNITS LAB [id number] WBC Count 5.38 3.99-11.19 K/uL LAB [id number] RBC Count 3.81 Low 3.91-5.04 M/uL LAB [id number] Hemoglobin 11.0 Low 11.4-15.2 g/dL LAB [id number] Hematocrit 34.2 Low 34.9-44.3 % LAB [id number] Mean Cell Volume 89.8 79.6-97.7 fL LAB [id number] Mean Cell Hgb 28.9 25.9-33.9 pg LAB [id number] Mean Cell Hgb Conc 32.2 31.4-35.9 g/dL LAB [id number] RBC Distribution 12.6 10.8-14.9 % LAB [id number] Platelet Count 293 150-393 K/uL LAB [id number] Mean Platelet Volume 9.5 8.5-12.2 fL Performed By: #### HEMOGC ## ## [facility] (DEFAULT) [address] [place] [address] CHEM 7 (LYTES,BUN,CREA,GLUC) Collected: 03/21/2023 4:16 AM Status: F Source: [facility] REPOSITORY TYPE CODE TESTS RESULT OUT OF RANGE REFERENCE UNITS LAB [id number] Sodium 141 135-145 mmol/L LAB [id number] Potassium 4.0 3.5-5.0 mmol/L LAB [id number] Chloride 106 98-108 mmol/L LAB [id number] CO2 25 21-31 mmol/L LAB [id number] Glucose 89 70-99 mg/dL LAB [id number] BUN 12 7-25 mg/dL LAB [id number] Creatinine 0.71 0.50-1.20 mg/dL LAB [id number] Bun/Crea Ratio 17 LAB [id number] Osmolality (Calculated) 294 278-305 mOsm/kg LAB [id number] Anion Gap 14 7-17 mmol/L LAB [id number] eGFR, CKD-EPI, Female > >=60 mL/min/ 1.73m2 Result Comment: Reported eGF R is based on the CKD-EPI 2020 equation using creatinine, age, and sex. Performed By: #### CHM7 #### [facility] (DEFAULT) [address] [address] PT,INR,PTT Collected: 3 4:16 AM Status: F Source: [facility] REPOSITORY TYPE CODE TESTS RESULT OUT OF RANGE REFERENCE UNITS LAB [id number] PT 13.7 11.9-14.2 sec LAB [id number] INR 1.1 0.9-1.1 LAB [id number] PTT 29.7 24.0-34.3 sec Performed By: #### PTPTT ### # [facility] (DEFAULT) [address] [place] [address] CORTISOL Collected: 3 4:16 AM Status: F Source: [facility] REPOSITORY TYPE CODE TESTS RESULT OUT OF RANGE REFERENCE UNITS LAB [id number] Cortisol 12.97 3.09-22.40 mcg/dL Performed By: #### JOSE ANGEL #### [facility] (DEFAULT) [address] [place] [address] METANEPHRINES, PLASMA Collected: 2022 11:33 AM Status: F Source: [facility] REPOSITORY TYPE CODE TESTS RESULT OUT OF RANGE REFERENCE UNITS LAB 2217 NORMETANEPH RINE, FREE 0.40 <0.90 nmol/L LAB 2216 METANEPHRIN E, FREE, PLASMA <0.20 <0.50 nmol/L Result Comment: ADDITIONAL INFORMATION This test was developed and its performance characteristics determined by [facility] in a manner consistent with CLIA requirements. This test has not been cleared or approved by the U.S. Food and Drug Administration. Test Performed by: [facility] - [place] [id number] Transferrer: Loyd Lujan M.D. Ph.D.; CLIA# [id number] Performed By: #### YMET #### [facility] (DEFAULT) [address] [place] [address] XR CHEST PORTABLE Observed: 03/20/2023 11:20 AM Status: F Source: [facility] REPOSITORY EXAM: XR CHEST PORTABLE, 12/2022 02:34 AM COMPARISON: No prior studies available for comparison. CLINICAL INDICATIONS: check IJ placement RELEVANT CLINICAL HISTORY: FINDINGS: (Adequate technique) Implanted Devices: Left EJ catheter terminating in the region of the left supraclavicular region. Thorax: Lungs are well-aerated and clear. No pneumothorax or pleural effusion. Normal heart size. No acute bone finding. IMPRESSION: Left EJ catheter terminating in the left supraclavicular region. No pneumothorax or other acute cardiopulmonary process. Findings discussed with bedside nurse Griselda Matias RN by Janet Flyod MD. RN confirmed that patient does not have an IJ and confirmed presence of the EJ line. I personally viewed and interpreted these images and I have reviewed and approved this report. IUM Collected: 3 5:05 AM Status: F Source: [facility] REPOSITORY TYPE CODE TESTS RESULT OUT OF RANGE REFERENCE UNITS LAB [id number] Calcium 8.9 8.6-10.5 mg/dL Performed By: #### CHM7, MGO , IPB, TSHQR, CA, HFP, LIPA #### [facility] (DEFAULT) [address] [place] [address] CHEM 7 (LYTES,BUN,CREA,GLUC) Collected: 03/20/2023 5:05 AM Status: F Source: [facility] REPOSITORY TYPE CODE TESTS RESULT OUT OF RANGE REFERENCE UNITS LAB [id number] Sodium 140 135-145 mmol/L LAB [id number] Potassium 3.6 3.5-5.0 mmol/L LAB [id number] Chloride 107 98-108 mmol/L LAB [id number] CO2 23 21-31 mmol/L LAB [id number] Glucose 82 70-99 mg/dL LAB [id number] BUN 14 7-25 mg/dL LAB [id number] Creatinine 0.61 0.50-1.20 mg/dL LAB [id number] Bun/Crea Ratio 23 LAB [id number] Osmolality (Calculated) 291 278-305 mOsm/kg LAB [id number] Anion Gap 14 7-17 mmol/L LAB [id number] eGFR, CKD-EPI, Female > >=60 mL/min/ 1.73m2 Result Comment: Reported eGF R is based on the CKD-EPI 2020 equation using creatinine, age, and sex. Performed By: #### CHM7, MGO , IPB, TSHQR, CA, HFP, LIPA #### [facility] (DEFAULT) [address] [address] MAGNESIUM Collected: 5:05 AM Status: F Source: [facility] REPOSITORY TYPE CODE TESTS RESULT OUT OF RANGE REFERENCE UNITS LAB [id number] Magnesium 1.9 1.6-2.6 mg/dL Performed By: #### CHM7, MGO , IPB, TSHQR, CA, HFP, LIPA #### [facility] (DEFAULT) [address] [address] HEPATIC FUNCTION PANEL Collected: 03/20/2023 5:05 AM Status: F Source: [facility] REPOSITORY TYPE CODE TESTS RESULT OUT OF RANGE REFERENCE UNITS LAB [id number] Albumin 4.2 3.5-5.0 g/dL LAB [id number] Bilirubin Direct 0.1 <0.3 mg/dL LAB [id number] Bilirubin Total 0.6 <1.5 mg/dL LAB [id number] ALP 104 32-126 U/L LAB [id number] ALT 50 High 9-48 U/L LAB [id number] AST 47 High 10-39 U/L LAB [id number] Total Protein 6.8 6.4-8.3 g/dL Performed By: #### CHM7, MGO , IPB, TSHQR, CA, HFP, LIPA #### [facility] (DEFAULT) [address] [address] PHOSPHATE, INORGANIC Collected: 023 5:05 AM Status: F Source: [facility] REPOSITORY TYPE CODE TESTS RESULT OUT OF RANGE REFERENCE UNITS LAB [id number] Phosphorous 2.3 2.2-4.6 mg/dL Performed By: #### CHM7, MGO , IPB, TSHQR, CA, HFP, LIPA #### [facility] (DEFAULT) [address] [address] LIPASE Collected: 3 5:05 AM Status: F Source: [facility] REPOSITORY TYPE CODE TESTS RESULT OUT OF RANGE REFERENCE UNITS LAB [id number] Lipase <6 Low 11-82 U/L Performed By: #### CHM7, MGO , IPB, TSHQR, CA, HFP, LIPA #### [facility] (DEFAULT) [address] [address] TSH W/FT4 REFLEX Collected: 5:05 AM Status: F Source: [facility] REPOSITORY TYPE CODE TESTS RESULT OUT OF RANGE REFERENCE UNITS LAB [id number] TSH 2.061 0.550-4.780 uIU/mL Performed By: #### CHM7, MGO , IPB, TSHQR, CA, HFP, LIPA #### [facility] (DEFAULT) [address] [address] PT,INR,PTT Collected: 3 5:05 AM Status: F Source: [facility] REPOSITORY TYPE CODE TESTS RESULT OUT OF RANGE REFERENCE UNITS LAB [id number] PT 14.0 11.9-14.2 sec LAB [id number] INR 1.1 0.9-1.1 LAB [id number] PTT 29.4 24.0-34.3 sec Performed By: #### PTPTT ### # [facility] (DEFAULT) [address] [address] CBC AND ELECTRONIC DIFF Collected: 03/20/2023 5:05 AM Status: F Source: [facility] REPOSITORY TYPE CODE TESTS RESULT OUT OF RANGE REFERENCE UNITS LAB [id number] WBC Count 6.91 3.99-11.19 K/uL LAB [id number] RBC Count 4.04 3.91-5.04 M/uL LAB [id number] Hemoglobin 11.9 11.4-15.2 g/dL LAB [id number] Hematocrit 36.2 34.9-44.3 % LAB [id number] Mean Cell Volume 89.6 79.6-97.7 fL LAB [id number] Mean Cell Hgb 29.5 25.9-33.9 pg LAB [id number] Mean Cell Hgb Conc 32.9 31.4-35.9 g/dL LAB [id number] RBC Distribution 12.2 10.8-14.9 % LAB [id number] Platelet Count 317 150-393 K/uL LAB [id number] Mean Platelet Volume 9.5 8.5-12.2 fL LAB [id number] DIFF STATUS Electronic Differential LAB [id number] Segs + Bands Auto 59.1 % LAB [id number] Immature Grans % 0.4 % LAB [id number] Lymphocyte % Auto 33.7 % LAB [id number] Monocyte % Auto 4.8 % LAB [id number] Eosinophil % Auto 1.4 % LAB [id number] Basophil % Auto 0.6 % LAB [id number] Nucleated RBC 0.0 <=0.2 /100 WB C LAB [id number] Segs + Bands,Absolute Auto 4.08 1.64-7.28 K/uL LAB [id number] Immature Grans Absolute < <=0.08 K/uL LAB [id number] Abs Lymph Auto 2.33 1.16-3.51 K/uL LAB [id number] Abs Graham Auto 0.33 0.22-0.87 K/uL LAB [id number] Abs Eos Auto 0.10 0.00-0.42 K/uL LAB [id number] Abs Baso Auto 0.04 0.00-0.15 K/uL Performed By: #### [id number] ## ## [facility] ([facility]) [address] [place] [address] COMPLEX RESPIRATORY CULTURE Observed: 12/25/2022 3:20 PM Status: F Source: [facility] REPOSITORY Specimen description: Respir atory CF SPUTUM Special requests: None Culture results: Moderate Normal upper respiratory sahil Report status: Final [id number] Performed By: #### RECF #### [place] [address] CNPN Observed: 10/19/2022 12:00 AM Status: COMPLETED Source: [facility] REPOSITORY Telephone (OBGYWM) LEONID VELAZQUEZ ([id number]) 1995 F Date Time Provider Department 10/19/22 KAREN DIAZ During your visit today, we recorded the following information about you: Karen Diaz APRN.CNP 10/19/2022 6:59 AM Signed Please call pt for clinical update regarding low back pain and any urinary symptoms. Her urine culture is positive for low amount of bacteria so if she is having symptoms, I will treat with an antibiotic. ELIZABETH Nair LPN 10/19/2022 8:15 AM Signed Voicemail and [employer] message sent to pt regarding below message. Will await further response from pt. Toya Sierra RN 10/19/2022 8:18 AM Signed Patient notified. She still does not have any urinary symptoms. Her lower back pain is a little better though since she was seen. Priscila Diaz APRN.CNP 10/19/2022 4:44 PM Signed Patient called per myself. Discussed urine culture positive for 10,000-<50,000 Streptococcus anginosus. She is having less back pain. Discussed that if urinary symptoms begin or if back pain increases she should notify office or go to urgent care. She can be treated with Augmentin 875 2-3 times a day. She does not want to start treatment now due to her chronic nausea. Discussed using Cystex as needed and increasing fluid intake. All questions answered. Karen Diaz APRN.CNP Allergies As of Date: 10/19/2022 Noted Allergy Reaction VANCOMYCIN ANALOGUES 06/01/2013 16 - Unknown 9 - Itching 7 - Swelling Comments: Premedicate with 25mg PO Benadryl and infuse over 180 minutes Date Reviewed: 10/17/2022 Reviewed by: Karen Diaz APRN.CNP - Fully Assessed Reason for Visit: Results [95] Clinical Update [1735] Prescriptions as of 10/19/2022 - omeprazole (PRILOSEC) 40 mg capsule take 1 capsule by mouth twice a day for 6 WEEKS then DECREASE to ... (REFER TO PRESCRIPTION NOTES). - promethazine (PHENERGAN) 25 mg tablet take 1 tablet by mouth every 8 hours if needed for nausea and vomiting - polyethylene glycol 3350 (MIRALAX, GLYCOLAX) 17 gram/dose powder Take 17 g by mouth q 4 HR. - MVW COMPLETE FORMULATION D5000 5,000-800 unit-mcg cap - ibuprofen (MOTRIN) 600 mg tablet Take by mouth. - granisetron HCl (KYTRIL) 1 mg tablet Take 1 mg by mouth once daily. - fluticasone (FLONASE) 50 mcg/actuation nasal spray - cetirizine (ZYRTEC) 10 mg tablet Take by mouth. - calcium carbonate (TUMS) 500 mg chew Take 500 mg by mouth. - albuterol (PROVENTIL) 2.5 mg /3 mL (0.083 %) nebulizer solution Inhale as instructed. - acetaminophen (TYLENOL) 500 mg tablet Take by mouth. - lubiprostone (AMITIZA) 24 mcg capsule Take 1 capsule by mouth twice daily. - naproxen (NAPROSYN) 500 mg tablet Take 1 tablet by mouth twice daily as needed for pain (for pain/inflammation). Take with food. For headache - tiZANidine (ZANAFLEX) 4 mg tablet Take 1 tablet by mouth every 8 hours as needed (muscle spasms / neck pain). May make drowsy; try at bedtime first - Blood Pressure Test Kit-Medium kit 1 Each one time a week. - hcifehosrlk-lajgndonjq-jltjosi (TRIKAFTA) 100-50-75 mg(d) /150 mg (n) TbSQ tabs Take 1 tablet by mouth. Take 2 combination tablets in the morning and take 1 Ivacaftor tablet in the evening. DO NOT crush, chew, or open. - ALBUTEROL INHALATION Inhale as instructed. - eshyfu-imqclapj-qhmtakp (CREON 24) 24,000-76,000 -120,000 unit delayed release capsule Take 3 capsules by mouth three times daily with meals. Problem List As Of Date 10/19/2022 Noted Resolved Cystic fibrosis (HCC) [E84.9] 07/26/2015 02/11/2020 Bleeding from breast [N64.59] 07/18/2016 11/04/2019 Bronchiectasis with acute exacerbation (HCC) [J*02/05/2012 Chronic frontal sinusitis [J32.1] 08/13/2018 Chronic pansinusitis [J32.4] 08/12/2012 Chronic sinusitis [J32.9] 05/21/2012 Functional constipation [K59.04] 08/13/2018 Depression [F32.A] 07/01/2012 AIYANA (distal intestinal obstruction syndrome) (*08/13/2018 Duodenal ulcer [K26.9] 12/26/2015 Cystic fibrosis (HCC) [E84.9] 09/10/2019 History of depression [Z86.59] 09/10/2019 11/04/2019 Patient request for diagnostic testing [Z01.89] 09/10/2019 Missed [O02.1] 10/30/2019 11/04/2019 Current with history of spontaneous a*01/14/2020 Subchorionic hemorrhage of placenta in first tr*02/22/2020 Diet controlled gestational diabetes mellitus (*03/31/2020 H/O syncope [Z87.898] 05/16/2020 Supervision of high risk in third tri*06/28/2020 Maternal care for tachycardia during preg*08/16/2020 Encounter Status:Closed by KAREN DIAZ on 10/19/22 BACTERIA UR CULT Observed: 10/17/2022 10:27 AM Status: F Source: [facility] REPOSITORY ORGANISM ID: 1 10,000 -<50,000 CFU/ml Streptococcus anginosus No susceptibility testing done. Performed By: #### [id number] ### # [facility] CLIA [id number] [address] [place] [address] [place] CN[place] Observed: 10/17/2022 10:00 AM Status: COMPLETED Source: [facility] REPOSITORY Office Visit (OBGYWM) LEONID VELAZQUEZ ([id number]) 1995 F Date Time Provider Department 10/17/22 10:00 AM KAREN DIAZ During your visit today, we recorded the following information about you: Blood pressure Weight Last Period 100/60 64.7 kg 10/16/22 Karen Diaz APRN.HOTEL OR MOTEL MANAGER 10/17/2022 12:08 PM Signed Customer Service Cashier offered: Patient declines. Leonid Velazquez is a 26 year old female who presents for problem visit low back pain for 2 week(s). HPI: low back pain over kidneys x 2 weeks. L>R. Pain feels like implantation cramping and aching. Denies urinary frequency, urgency, dysuria. On menses. It is not abnormal for back to feel like this but it usually resolves after a couple of days. [place] hot once but did not take temperature. No change in activity or known trauma. Did feel pain when putting child in car seat over the weekend. + intermittent nausea - takes omeprazole and promethazine daily for chronic nausea. Sees GI. Has had GI work-up with no found cause. Heat and rest helps pain. Tylenol not effective. Cystic Fibrosis. 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 LMP: 10/16/2022, Having periods Age at Menarche: Age at First : Age at Menopause: Kinder Teacher History Comments: Sexual Activity: Yes; Male Contraception: None PAST MEDICAL HISTORY Diagnosis Date Abnormal Pap smear of cervix 2016 Dr Handy bleeding from breast Cystic fibrosis (HCC) Diet controlled gestational diabetes mellitus (GDM) in second trimester 03/31/2020 History of miscarriage Mental disorder Pancreatic insufficiency PAST SURGICAL HISTORY Procedure Laterality Date DANDC SUCTION 11/2019 D+C EMBOLIZATION - TEST OCCLUSION x3 PAST SURGICAL HISTORY OF feeding tube when patient was a baby PAST SURGICAL HISTORY OF several sinus surgeries TOOTH EXTRACTION VAGINOSCOPY FAMILY HISTORY Problem Relation Age of Onset Psychiatry Mother Hypertension Mother Psychiatry Father No Known Problems Sister No Known Problems Brother No Known Problems Brother No Known Problems Brother No Known Problems Brother Psychiatry Maternal Grandmother No Known Problems Paternal Grandmother No Known Problems Paternal Grandfather other (CF 3rd cousinb) Paternal cousin Colon Cancer No Family History Social History Tobacco Use Smoking status: Never Smokeless tobacco: Never Vaping Use Vaping Use: Never used Substance Use Topics Alcohol use: Not Currently Comment: Rarely Drug use: No Current Outpatient Medications Medication Sig omeprazole (PRILOSEC) 40 mg capsule take 1 capsule by mouth twice a day for 6 WEEKS then DECREASE to ... (REFER TO PRESCRIPTION NOTES). promethazine (PHENERGAN) 25 mg tablet take 1 tablet by mouth every 8 hours if needed for nausea and vomiting polyethylene glycol 3350 (MIRALAX, GLYCOLAX) 17 gram/dose powder Take 17 g by mouth q 4 HR. MVW COMPLETE FORMULATION D5000 5,000-800 unit-mcg cap ibuprofen (MOTRIN) 600 mg tablet Take by mouth. fluticasone (FLONASE) 50 mcg/actuation nasal spray cetirizine (ZYRTEC) 10 mg tablet Take by mouth. calcium carbonate (TUMS) 500 mg chew Take 500 mg by mouth. albuterol (PROVENTIL) 2.5 mg /3 mL (0.083 %) nebulizer solution Inhale as instructed. acetaminophen (TYLENOL) 500 mg tablet Take by mouth. lubiprostone (AMITIZA) 24 mcg capsule Take 1 capsule by mouth twice daily. naproxen (NAPROSYN) 500 mg tablet Take 1 tablet by mouth twice daily as needed for pain (for pain/inflammation). Take with food. For headache libpkkiubxj-tpavrehcss-wkxyyzv (TRIKAFTA) 100-50-75 mg(d) /150 mg (n) TbSQ tabs Take 1 tablet by mouth. Take 2 combination tablets in the morning and take 1 Ivacaftor tablet in the evening. DO NOT crush, chew, or open. ALBUTEROL INHALATION Inhale as instructed. unrrwd-nqxtibbe-xxdjofm (CREON 24) 24,000-76,000 -120,000 unit delayed release capsule Take 3 capsules by mouth three times daily with meals. granisetron HCl (KYTRIL) 1 mg tablet Take 1 mg by mouth once daily. tiZANidine (ZANAFLEX) 4 mg tablet Take 1 tablet by mouth every 8 hours as needed (muscle spasms / neck pain). May make drowsy; try at bedtime first Blood Pressure Test Kit-Medium kit 1 Each one time a week. No current facility-administered medications for this visit. Allergies As of Date: 10/17/2022 Allergen Noted Reaction VANCOMYCIN ANALOGUES 06/01/2013 Unknown, Itching, and Swelling Fully Assessed 10/17/2022 REVIEW OF SYSTEMS Abdomen: No bloating, early satiety, indigestion, or increased flatulence. No abdominal pain, nausea, vomiting, diarrhea, or constipation. Bladder: No dysuria, gross hematuria, urinary frequency, urinary urgency, or incontinence. Allergies and current medication updated:Yes EXAM: BP 100/60 Wt 142 lb 9.6 oz (64.7kg) LMP 10/16/2022 GENERAL: pleasant, female in no apparent distress until after MS assessment - the motion caused nausea and dry heaving. CHEST: Normal inspiratory effort ABDOMEN: soft, non-tender, and no masses. Mild CVA tenderness left NEURO: alert and oriented x3,exam grossly non-focal MS - no pain with motion ASSESSMENT/PLAN: 1. Bilateral low back pain without sciatica, unspecified chronicity - ICD9: 724.2, ICD10: M54.50 - UAC POC - leuks trace, large blood on menses - URINE CULTURE 2. Leukocytes in urine - ICD9: 791.7, ICD10: R82.998 - URINE CULTURE Will notify of results. Follow- up as needed. Karen Diaz APRN.GARRY I spent a total of 20 minutes on the date of the service which included preparing to see the patient, ccbc-ig-cptz patient care, completing clinical documentation, obtaining and/or reviewing separately obtained history, performing a medically appropriate examination, counseling and educating the patient/family/caregiver, and ordering medications, tests, or procedures. Allergies As of Date: 10/17/2022 Noted Allergy Reaction VANCOMYCIN ANALOGUES 06/01/2013 16 - Unknown 9 - Itching 7 - Swelling Comments: Premedicate with 25mg PO Benadryl and infuse over 180 minutes Date Reviewed: 10/17/2022 Reviewed by: Karen Diaz APRN.HOTEL OR MOTEL MANAGER - Fully Assessed Reason for Visit: Urinary Problem [252] Primary Visit Diagnosis:Bilateral low back pain without sciatica, unspecified chronicity [M54.50] Other Visit Diagnosis:Leukocytes in urine [R82.998] Order(s):UA DIP, URINE (POC) [[id number]] Order #: [id number]. #:[id number] URINE CULTURE [SQURCUL] Order #: [id number]. #:[id number] Prescriptions as of 10/17/2022 - omeprazole (PRILOSEC) 40 mg capsule take 1 capsule by mouth twice a day for 6 WEEKS then DECREASE to ... (REFER TO PRESCRIPTION NOTES). - promethazine (PHENERGAN) 25 mg tablet take 1 tablet by mouth every 8 hours if needed for nausea and vomiting - polyethylene glycol 3350 (MIRALAX, GLYCOLAX) 17 gram/dose powder Take 17 g by mouth q 4 HR. - MVW COMPLETE FORMULATION D5000 5,000-800 unit-mcg cap - ibuprofen (MOTRIN) 600 mg tablet Take by mouth. - granisetron HCl (KYTRIL) 1 mg tablet Take 1 mg by mouth once daily. - fluticasone (FLONASE) 50 mcg/actuation nasal spray - cetirizine (ZYRTEC) 10 mg tablet Take by mouth. - calcium carbonate (TUMS) 500 mg chew Take 500 mg by mouth. - albuterol (PROVENTIL) 2.5 mg /3 mL (0.083 %) nebulizer solution Inhale as instructed. - acetaminophen (TYLENOL) 500 mg tablet Take by mouth. - lubiprostone (AMITIZA) 24 mcg capsule Take 1 capsule by mouth twice daily. - naproxen (NAPROSYN) 500 mg tablet Take 1 tablet by mouth twice daily as needed for pain (for pain/inflammation). Take with food. For headache - tiZANidine (ZANAFLEX) 4 mg tablet Take 1 tablet by mouth every 8 hours as needed (muscle spasms / neck pain). May make drowsy; try at bedtime first - Blood Pressure Test Kit-Medium kit 1 Each one time a week. - pzesevxkxga-ijaenrphvj-fnnuzkf (TRIKAFTA) 100-50-75 mg(d) /150 mg (n) TbSQ tabs Take 1 tablet by mouth. Take 2 combination tablets in the morning and take 1 Ivacaftor tablet in the evening. DO NOT crush, chew, or open. - ALBUTEROL INHALATION Inhale as instructed. - zrpnkb-raheuxng-rdcmkeg (CREON 24) 24,000-76,000 -120,000 unit delayed release capsule Take 3 capsules by mouth three times daily with meals. Problem List As Of Date 10/17/2022 Noted Resolved Cystic fibrosis (HCC) [E84.9] 07/26/2015 02/11/2020 Bleeding from breast [N64.59] 07/18/2016 11/04/2019 Bronchiectasis with acute exacerbation (HCC) [J*02/05/2012 Chronic frontal sinusitis [J32.1] 08/13/2018 Chronic pansinusitis [J32.4] 08/12/2012 Chronic sinusitis [J32.9] 05/21/2012 Functional constipation [K59.04] 08/13/2018 Depression [F32.A] 07/01/2012 AIYANA (distal intestinal obstruction syndrome) (*08/13/2018 Duodenal ulcer [K26.9] 12/26/2015 Cystic fibrosis (HCC) [E84.9] 09/10/2019 History of depression [Z86.59] 09/10/2019 11/04/2019 Patient request for diagnostic testing [Z01.89] 09/10/2019 Missed [O02.1] 10/30/2019 11/04/2019 Current with history of spontaneous a*01/14/2020 Subchorionic hemorrhage of placenta in first tr*02/22/2020 Diet controlled gestational diabetes mellitus (*03/31/2020 H/O syncope [Z87.898] 05/16/2020 Supervision of high risk in third tri*06/28/2020 Maternal care for tachycardia during preg*08/16/2020 Encounter Status:Closed by KAREN DIAZ on 10/17/22 PROGRESS Observed: 10/17/2022 9:53 AM Status: COMPLETED Source: [facility] REPOSITORY O ID: [id number] Author: Karen Diaz APRN.HOTEL OR MOTEL MANAGER Service: ? Author Type: Nurse Practitioner Type: Progress Notes Filed: 10/17/2022 12:08 PM Note Text: Customer Service Cashier offered: Patient declines. Leonid Velazquez is a 26 year old female who presents for problem visit low back pain for 2 week(s). HPI: low back pain over kidneys x 2 weeks. L>R. Pain feels like implantation cramping and aching. Denies urinary frequency, urgency, dysuria. On menses. It is not abnormal for back to feel like this but it usually resolves after a couple of days. [place] hot once but did not take temperature. No change in activity or known trauma. Did feel pain when putting child in car seat over the weekend. + intermittent nausea - takes omeprazole and promethazine daily for chronic nausea. Sees GI. Has had GI work-up with no found cause. Heat and rest helps pain. Tylenol not effective. Cystic Fibrosis. 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 LMP: 10/16/2022, Having periods Age at Menarche: Age at First : Age at Menopause: Kinder Teacher History Comments: Sexual Activity: Yes; Male Contraception: None PAST MEDICAL HISTORY Diagnosis Date Abnormal Pap smear of cervix 2016 Dr Handy bleeding from breast Cystic fibrosis (HCC) Diet controlled gestational diabetes mellitus (GDM) in second trimester 03/31/2020 History of miscarriage Mental disorder Pancreatic insufficiency PAST SURGICAL HISTORY Procedure Laterality Date DANDC SUCTION 11/2019 D+C EMBOLIZATION - TEST OCCLUSION x3 PAST SURGICAL HISTORY OF feeding tube when patient was a baby PAST SURGICAL HISTORY OF several sinus surgeries TOOTH EXTRACTION VAGINOSCOPY FAMILY HISTORY Problem Relation Age of Onset Psychiatry Mother Hypertension Mother Psychiatry Father No Known Problems Sister No Known Problems Brother No Known Problems Brother No Known Problems Brother No Known Problems Brother Psychiatry Maternal Grandmother No Known Problems Paternal Grandmother No Known Problems Paternal Grandfather other (CF 3rd cousinb) Paternal cousin Colon Cancer No Family History Social History Tobacco Use Smoking status: Never Smokeless tobacco: Never Vaping Use Vaping Use: Never used Substance Use Topics Alcohol use: Not Currently Comment: Rarely Drug use: No Current Outpatient Medications Medication Sig omeprazole (PRILOSEC) 40 mg capsule take 1 capsule by mouth twice a day for 6 WEEKS then DECREASE to ... (REFER TO PRESCRIPTION NOTES). promethazine (PHENERGAN) 25 mg tablet take 1 tablet by mouth every 8 hours if needed for nausea and vomiting polyethylene glycol 3350 (MIRALAX, GLYCOLAX) 17 gram/dose powder Take 17 g by mouth q 4 HR. MVW COMPLETE FORMULATION D5000 5,000-800 unit-mcg cap ibuprofen (MOTRIN) 600 mg tablet Take by mouth. fluticasone (FLONASE) 50 mcg/actuation nasal spray cetirizine (ZYRTEC) 10 mg tablet Take by mouth. calcium carbonate (TUMS) 500 mg chew Take 500 mg by mouth. albuterol (PROVENTIL) 2.5 mg /3 mL (0.083 %) nebulizer solution Inhale as instructed. acetaminophen (TYLENOL) 500 mg tablet Take by mouth. lubiprostone (AMITIZA) 24 mcg capsule Take 1 capsule by mouth twice daily. naproxen (NAPROSYN) 500 mg tablet Take 1 tablet by mouth twice daily as needed for pain (for pain/inflammation). Take with food. For headache gyxfgdlsqyk-ygffyiilhl-yvipzpl (TRIKAFTA) 100-50-75 mg(d) /150 mg (n) TbSQ tabs Take 1 tablet by mouth. Take 2 combination tablets in the morning and take 1 Ivacaftor tablet in the evening. DO NOT crush, chew, or open. ALBUTEROL INHALATION Inhale as instructed. lrxoiv-sedxceiw-jxxmaqz (CREON 24) 24,000-76,000 -120,000 unit delayed release capsule Take 3 capsules by mouth three times daily with meals. granisetron HCl (KYTRIL) 1 mg tablet Take 1 mg by mouth once daily. tiZANidine (ZANAFLEX) 4 mg tablet Take 1 tablet by mouth every 8 hours as needed (muscle spasms / neck pain). May make drowsy; try at bedtime first Blood Pressure Test Kit-Medium kit 1 Each one time a week. No current facility-administered medications for this visit. Allergies As of Date: 10/17/2022 Allergen Noted Reaction VANCOMYCIN ANALOGUES 06/01/2013 Unknown, Itching, and Swelling Fully Assessed 10/17/2022 REVIEW OF SYSTEMS Abdomen: No bloating, early satiety, indigestion, or increased flatulence. No abdominal pain, nausea, vomiting, diarrhea, or constipation. Bladder: No dysuria, gross hematuria, urinary frequency, urinary urgency, or incontinence. Allergies and current medication updated:Yes EXAM: BP 100/60 Wt 142 lb 9.6 oz (64.7kg) LMP 10/16/2022 GENERAL: pleasant, female in no apparent distress until after MS assessment - the motion caused nausea and dry heaving. CHEST: Normal inspiratory effort ABDOMEN: soft, non-tender, and no masses. Mild CVA tenderness left NEURO: alert and oriented x3,exam grossly non-focal MS - no pain with motion ASSESSMENT/PLAN: 1. Bilateral low back pain without sciatica, unspecified chronicity - ICD9: 724.2, ICD10: M54.50 - UAC POC - leuks trace, large blood on menses - URINE CULTURE 2. Leukocytes in urine - ICD9: 791.7, ICD10: R82.998 - URINE CULTURE Will notify of results. Follow- up as needed. Karen Diaz APRN.GARRY I spent a total of 20 minutes on the date of the service which included preparing to see the patient, obif-ow-iawo patient care, completing clinical documentation, obtaining and/or reviewing separately obtained history, performing a medically appropriate examination, counseling and educating the patient/family/caregiver, and ordering medications, tests, or procedures. ALLERGIES DATE TYPE / CODE NAME / CODE REACTION SEVERITY SOURCE 06/01/2013 Drug Class/4614604 03(SNOMED CT) VANCOMYCIN ANALOGUES RE Mild (qualifier value) [facility] 06/01/2013 Drug Class/1354469 03(SNOMED CT) VANCOMYCIN ANALOGUES UNKNOWN Low [facility] ENCOUNTERS ADMIT/DISCHARGE ACCOUNT NUMBER ADMITTING ENCOUNTER CLASS LOCATION SOURCE 06/21/2023 [id number] [facility]ITAL[facility] ing[facility] 04/26/2023 [id number] [facility]ITAL[facility] ing:[facility] 04/19/2023 [id number] [facility] HOSPITALBuild ing:[facility] 03/19/2023/ 023 [id number] LILIAN JULES [facility] HOSPITALBuild ing:Y1LZgpc: [id number]: A [facility] 03/08/2023 [id number] [facility]PITALBuild ing:[facility] 01/18/2023 [id number] [facility]PITALBuild ing:[facility] 12/25/2022/ 023 [id number] [facility] [id number] [facility] ENCOUNTER GUARANTOR PAYER SUBSCRIBER SOURCE 06/21/2023 LEONID Casey ODMINGA: [place] [address]Asp: ~[phone] (HP) Primary Insurance:[employer] Number: [id number] Date:7027-67-34Dzyn Name:MANAGED CARE LEONID Casey LUCIEB: [id number] [place] [address]Tui: (HP) [facility] 04/26/2023 LEONID Casey LUCIEB: [place]Sy[place] [address]Pgf: ~[phone] (HP) [facility] Number: [id number] Date:9581-60-54Crxn Name:MANAGED CARE STANLEYMICHELLE Casey LUCIEB: [id number] [place] [address]Gtp: (HP) [facility] 04/19/2023 STANLEYMICHELLE Casey LUCIEB: [place] [address]Tkc: ~[phone] (HP) Primary Insurance[facility] Number: [id number] Date:8060-72-18Gnit Name:MANAGED CARE STANLEYMICHELLE Casey LUCIEB: [id number] O[place]EL [place] [address]Oko: (HP) [facility] 03/19/2023 LEONID Jacinto LUCIEB: [place] [address]Pjb: ~[phone] (HP) Primary Insurance:[facility] Number: [id number] Date:1520-36-85Vjia Name:MANAGED CARE STANLEYMICHELLE Jacinto FAULKNERB: [id number] OSIEL [place] [address]Lwg: (HP) [facility] 03/08/2023 LEONID ORR: [place] [address]Kjy: ~[phone] (HP) Primary Insurance:[facility] Number: [id number] Date:9376-85-16Oedd Name:MANAGED CARE LEONID ORR: [id number] O[place]EL [place] [address]Jkx: (HP) [facility] 01/18/2023 LEONID ORR: [place] [address]Mmy: ~[phone] (HP) Primary Insurance:[facility] Number: [id number] Date:9012-84-60Bdkb Name:MANAGED CARE LEONID ORR: [id number] OSIEL [place] [address]Qyz: (HP) [facility] 12/25/2022 LEONID ORR: [place] [address]Yrf: (HP) [facility] Insurance[facility] Number: [id number] Date:2019-06-13 ELONID ORR: [id number] [place] [address]Ojm: (HP) [facility] 10/17/2022 Primary Insurance:[facility] CHOICE PLUSPolicy Number: [id number] Date:5762-86-32Nhsq Name:Syed ORR: [id number] [place] [address] [facility]
--- NOTE | 2023-07-06 09:23 | ED.RN ---
pt refused meds and iv, i just want to make sure i dont have a tumor .
[2023-07-06 11:12] VITALS: BP 134/69; PULSE 88; RESP 17; TEMP 36.7; O2SAT 100
== END 2023-07-06 11:14 | disposition home or self-care (01) ==
PROVIDERS: Emergency Provider Emergency Medicine; Visit Provider Emergency Medicine
DX: R51.9 Headache, unspecified (principal)
CPT/HCPCS: 70450; 99282

== ENCOUNTER 2023-07-29 01:03 | Emergency (ER) | payer OTHER, SELFPAY ==
[2023-07-29 01:04] VITALS: BP 136/93; PULSE 86; RESP 18; TEMP 36.6; O2SAT 99; BMI 25.7
[2023-07-29 02:00] VITALS: BP 142/96; PULSE 85; RESP 17; O2SAT 100
--- NOTE | 2023-07-29 02:46 | EDS_ITS ---
HPI History of Present Illness Chief Complaint: Chest Other Detail of Chief Complaint: Patient has xiphoid epigastric discomfort. Informant: patient Onset/Context/Timing Onset: Today (Onset at a proximately 2100) Context: Sudden Onset Timing: Continuous Quality: Indigestion, burning Location: Xiphoid Current Severity: Moderate Maximum Severity: Severe Worsened by: Possibly tacos that patient ate at 1700 Relieved by: Nothing Associated Symptoms Associated Symptoms: No other symptoms Narrative Narrative: Patient is a 27-year-old female. She has history of peptic ulcer disease with duodenal ulcer and reflux. She is presently on sucralfate, omeprazole and Pepcid. She denies black or maroon-colored stool. She denies hematemesis or hematochezia. She denies intolerance to greasy or fried foods. There is no family history of cholelithiasis. She does have pain that radiates through to her back. She does not have shortness of breath, diaphoresis, pallor or radiation to the shoulders, arms jaw or neck. She denies fever, chills or night sweats. She denies any respiratory symptoms or infectious respiratory symptoms. Prior similar symptoms: Yes (Patient was admitted for intractable epigastric pain March 2023.) Recent Illness/Hospitalization: No PFSH [facility] Medical History Bronchiectasis Cystic fibrosis Depression AIYANA (distal intestinal obstruction syndrome) Duodenal ulcer Feeding by G-tube GDM (gestational diabetes mellitus) H/O gastroesophageal reflux (GERD) Hx of cystic fibrosis Missed Sinusitis Subchorionic hemorrhage in first trimester Syncope (05/01/20) Home Medications albuterol sulfate 90 mcg/actuation aerosol inhaler 1 puff inhalation BID PRN SORTNESS OF BREATH/WHEEZING 07/31/16 [History Last Taken 11/11/19] elexacaftor 100 mg-tezacaf 50mg-ivacaf 75mg(d)/ivacaf 150mg(n) tablets 2 ea PO DAILY CYSTIC FIBROSIS 05/20/20 [History Last Taken 03/18/23] sbucev-jhavqhtk-kszuypz 24,000-76,000-120,000 unit capsule,delayed rel 4 capsule PO TIDCM CYSTIC FIBROSIS 09/04/20 [History Last Taken 03/18/23] fluticasone propionate 50 mcg/actuation nasal spray,suspension 1 spray intranasal DAILY NASAL CONGESTION 05/20/22 [History Last Taken 03/18/23] lubiprostone 24 mcg capsule 24 mcg PO BID CONSTIPATION 05/20/22 [History Last Taken 03/18/23] promethazine 25 mg tablet 25 mg PO TID PRN nausea and vomiting #20 tabs 05/20/22 [Rx Last Taken 03/17/23] amitriptyline 10 mg tablet 20 mg PO DAILY DEPRESSION 03/19/23 [History Last Taken 03/18/23] hnakdi-wqkvpfyl-wbmrqin 24,000-76,000-120,000 unit capsule,delayed rel (Creon) 3 cap PO UD PRN CYSTIC FIBROSIS 03/19/23 [History Last Taken 03/18/23] omeprazole 40 mg capsule,delayed release 40 mg PO DAILY ACID REFLUX 03/19/23 [History Last Taken 03/19/23] Allergy/AdvReac Type Severity Reaction Status Date / Time vancomycin Allergy Mild Itching Verified 07/29/23 01:04 Surgical History embolization History of dilatation and curettage (11/2019) History of sinus surgery Social History Smoking Status: Never smoker alcohol intake: never substance use type: does not use ROS ROS ED Constitutional Constitutional ED: Denies chills, fever(s), subjective or sweats Eyes Eyes: Denies blurry vision, change in vision or diplopia ENT ENT ED: Denies rhinorrhea or sore throat Cardiovascular Cardiovascular: Denies chest pain, orthopnea, palpitations or paroxysmal nocturnal dyspnea Respiratory/Chest Respiratory/Chest: Denies cough, dyspnea, dyspnea on exertion, orthopnea or paroxysmal nocturnal dyspnea Gastrointestinal Gastrointestinal: Reports abdominal pain and nausea; Denies constipation, diarrhea, melena or vomiting Musculoskeletal Musculoskeletal: Reports back pain; Denies arthralgias, myalgias or neck pain Integumentary Denies rash Neurologic Neurologic: Denies paresthesias or weakness Psychiatric Psychiatric: Denies anxiety or depression Hematologic/Lymphatic Hematologic/Lymphatic: Reports systems reviewed and no addt'l complaints, except as documented EXAM Physical Exam Const Vital Signs: 07/29/23 01:04 07/29/23 02:00 Temperature 98 F Temperature Source Temporal Pulse Rate 86 85 Respiratory Rate 18 17 Blood Pressure 136/93 H 142/96 H Blood Pressure Mean 107 111 Pulse Ox 99 100 Oxygen Delivery Method Room Air Vital signs noted. Pressure is slightly elevated. Positive well nourished and well developed General Appearance ED: well developed and NAD; Negative for cyanotic, diaphoretic or pallor HEENT Reports moist mucous membranes HEENT Narrative: Head is atraumatic and normocephalic. Ears normal. Nares patent. Posterior pharynx is normal. Eyes PERRL and EOMs intact bilaterally General Eye ED: Negative for pale conjunctiva or scleral icterus Neck no lymphadenopathy, supple and no JVD Chest Wall inspection of chest normal and palpation of chest normal Resp normal respiratory effort and clear to auscultation bilaterally Cardio regular rate, regular rhythm, S1 normal heart sound, S2 normal heart sound and no murmurs GI normal to inspection, nondistended, normoactive bowel sounds, non-distended and no masses; Negative for non-tender or hepatosplenomegaly Palpation: soft and tender epigastric Back/Spine no CVA tenderness Extremity normal to inspection General Extremety ED: Negative for edema General Extremity: Negative for edema Neuro oriented x3, CN's II-XII intact bilaterally and no sensory deficits noted Sensorium / Orientation: alert Psych mental status grossly normal Skin no rashes or lesions noted, no wounds and skin turgor normal General Skin Exam: elasticity normal; Negative for jaundice or pallor MDM MDM MDM Narrative Medical decision making narrative: Differential diagnosis would include reflux, peptic ulcer disease, pancreatitis and cholelithiasis. Patient states when she has gotten a GI cocktail in the past it did not work. Therefore IV Pepcid and GI cocktail was ordered. Apparently her pain had resolved by the time the nurse was in the room to start an IV. When I reevaluated the patient at 0248 she was symptom-free blood pressure was normal. In light of this we will discharge the patient to home. History & Record Review Additional record(s) reviewed:: Prior inpatient record (Admission by Dr. Garcia March 2023), Prior ED visit and Prior labs Discharge Plan Triage Chief Complaint: Chest Other ED Provider: Fernandez,Valdo Dx/Rx/DC Orders Clinical Impression: Hx of duodenal ulcer, Hx of gastroesophageal reflux (GERD), Acute epigastric pain Instructions: ED Epigastric Pain Uncertain Cause Prescriptions: No Action albuterol sulfate 1 INHALER inhaler 1 puff INHALATION BID PRN (Reason: SORTNESS OF BREATH/WHEEZING ) fkaapaslvhk-ftbmruuddr-rnhaqvk 100-50-75 mg(d) /150 mg (n) tablets, sequential 2 ea PO DAILY zlaeug-fjesupib-tbjelex 1 CAPSULE capsule 4 capsule PO TIDCM Rx Instructions: TAKE 4 CAPSULES BY MOUTH WITH EACH MEAL. (3 CAPSULES W/SNACKS 4 CAPSULES W/MEALS) fluticasone propionate 50 mcg/actuation spray,suspension 1 spray INTRANASAL DAILY lubiprostone 24 mcg capsule 24 mcg PO BID promethazine 25 mg tablet 25 mg PO TID PRN (Reason: nausea and vomiting) Qty: 20 0RF omeprazole 40 mg capsule,delayed release(DR/EC) 40 mg PO DAILY amitriptyline 10 mg tablet 20 mg PO DAILY Creon 24,000-76,000 -120,000 unit capsule,delayed release(DR/EC) 3 cap PO UD PRN (Reason: CYSTIC FIBROSIS) Rx Instructions: TAKE 3 CAPSULES BY MOUTH WITH SNACKS. (3 CAPSULES W/SNACKS 4 CAPSULES W/MEALS) Primary Care Provider: NOT,DEFINED Referrals: NOT,DEFINED [Primary Care Provider] - Doctor,Your [Non-Staff] - 1-2 Weeks Disposition Disposition: Home, Self Care
[2023-07-29 03:04] VITALS: BP 124/85; PULSE 75; RESP 14; TEMP 37; O2SAT 99
== END 2023-07-29 03:07 | disposition home or self-care (01) ==
PROVIDERS: Emergency Provider Emergency Medicine; Visit Provider Emergency Medicine
DX: R10.13 Epigastric pain (principal)
CPT/HCPCS: 99282; A4216; J3490